=== PATIENT | female | born 1990 | race Caucasian/White ===

== ENCOUNTER 2019-08-07 20:12 | Emergency (ER) | payer OTHER ==
[2019-08-07] MEDS ORDERED: XYLOCAINE 1% HCL 20 ML MDV IJ ONE (20:13)
--- NOTE | 2019-08-07 21:20 | ERPHSYRPT ---
- History of Present Illness Time Seen by Provider: 08/07/19 21:18 Source: patient Exam Limitations: no limitations Patient Subjective Stated Complaint: Patient states " My back has been hurting for last 3 weeks but today it just became unbearable". Patient states " Its getting hard to walk and move". Triage Nursing Assessment: Patient arrived to ER via self. Patient ambulated to room without difficulty. Patient A/O times 4. Patient answers questions appropriatley. Upon assessment of lower back no bruising or redness noted. No abnormalities noted. Patient states she does have rough time with kidneys. Patient denies pain or burning upon urination. Urine collected and urine yellow in color. Patient lungs clear bilateral A/P throughout. + BS times 4 quads. ABD large, non-distended. Patient denies ABD pain upon palpitation. No dependent edema noted. + pedal pulses in bilateral lower extremities. Physician History: Patient states " My back has been hurting for last 3 weeks but today it just became unbearable". Patient states " Its getting hard to walk and move". Patient denies ABD pain Timing/Duration: day(s) (3) Severity: moderate Associated Symptoms: other (low back pain), No abdominal pain, No heartburn, No diaphoresis, No chills, No chest pain, No fever, No headaches, No loss of appetite Allergies/Adverse Reactions: Penicillins Adverse Reaction (Verified 08/07/19 20:47) Hx Tetanus, Diphtheria Vaccination/Date Given: Yes Hx Influenza Vaccination/Date Given: Yes Hx Pneumococcal Vaccination/Date Given: No Immunizations Up to Date: Yes Travel Risk - International Travel Have you traveled outside of the country in past 3 weeks: No Have you or anyone close to you been diagnosed with or: No Do your reside in a community with a known COVID-19 case?: Yes If Yes where:: [facility] - Coronavirus Screening Has patient experienced Coronavirus symptoms: No - Review of Systems Constitutional: No Fever, No Chills Eyes: No Symptoms Ears, Nose, & Throat: No Symptoms Respiratory: No Cough, No Dyspnea Cardiac: No Chest Pain, No Edema, No Syncope Abdominal/Gastrointestinal: No Abdominal Pain, No Nausea, No Vomiting, No Diarrhea Genitourinary Symptoms: No Dysuria, No Frequency, No Hesitancy, No Flank Pain Musculoskeletal: Back Pain, No Neck Pain Skin: No Rash Neurological: No Dizziness, No Focal Weakness, No Sensory Changes Psychological: No Symptoms Endocrine: No Symptoms All Other Systems: Reviewed and Negative - Past Medical History Pertinent Past Medical History: Yes Neurological History: No Pertinent History ENT History: No Pertinent History Cardiac History: No Pertinent History Respiratory History: No Pertinent History Endocrine Medical History: No Pertinent History Musculoskeletal History: No Pertinent History GI Medical History: No Pertinent History History: No Pertinent History Psycho-Social History: Anxiety, Depression Female Reproductive Disorders: Other Other Medical History: PCOS - Past Surgical History Past Surgical History: Yes Neuro Surgical History: No Pertinent History Cardiac: No Pertinent History Respiratory: No Pertinent History Gastrointestinal: Cholecystectomy Genitourinary: No Pertinent History Musculoskeletal: No Pertinent History Female Surgical History: No Pertinent History - Social History Smoking Status: Never smoker Exposure to second hand smoke: No Drug Use: none Patient Lives Alone: No - Female History Hx Last Menstrual Period: 08/07/19 Hx Now: No - Nursing Vital Signs Nursing Vital Signs: Initial Vital Signs Temperature 97.6 F 08/07/19 20:42 Pulse Rate 82 08/07/19 20:42 Respiratory Rate 18 08/07/19 20:42 Blood Pressure 122/75 08/07/19 20:42 O2 Sat by Pulse Oximetry 97 08/07/19 20:42 Pain Scale Pain Intensity [Back] 10 Pain Intensity 10 - Physical Exam General Appearance: no apparent distress, alert Eye Exam: PERRL/EOMI, eyes nml inspection Ears, Nose, Throat Exam: normal ENT inspection, TMs normal, pharynx normal, moist mucous membranes Neck Exam: normal inspection, non-tender, supple, full range of motion Respiratory Exam: normal breath sounds, lungs clear, No respiratory distress Cardiovascular Exam: regular rate/rhythm, normal heart sounds, normal peripheral pulses Gastrointestinal/Abdomen Exam: soft, normal bowel sounds, No tenderness, No mass Back Exam: normal inspection, normal range of motion, No CVA tenderness, No vertebral tenderness Extremity Exam: normal inspection, normal range of motion, pelvis stable Neurologic Exam: alert, oriented x 3, cooperative, normal mood/affect, nml cerebellar function, nml station & gait, sensation nml, No motor deficits Skin Exam: normal color, warm, dry, No rash Lymphatic Exam: No adenopathy SpO2: 96 - Course Nursing assessment & vital signs reviewed: Yes Ordered Tests: Active Orders 24 hr Category Date Time Status UA W/RFX UR CULTURE Stat Lab 08/07/19 21:23 Completed Medication Summary Generic Name Dose Route Start Last Admin Trade Name Konrad PRN Reason Stop Dose Admin Ceftriaxone Sodium 1,000 mg 08/07/19 21:35 Rocephin 1000 Mg Inj IM 08/07/19 21:36 STAT ONE Orphenadrine Citrate 60 mg 08/07/19 21:35 Norflex 60 Mg/2 Ml IM 08/07/19 21:36 STAT ONE Lab/Rad Data: Laboratory Results 08/07/19 Range/Units 21:23 Urine Color YELLOW (YELLOW) Urine Appearance SLIGHTLY CLOUDY (CLEAR) Urine pH 5.0 (5-6) Ur Specific Stevens 1.035 (1.005-1.025) Urine Protein 30 (Negative) Urine Ketones NEGATIVE (NEGATIVE) Urine Blood SMALL (0-5) Ramsey/ul Urine Nitrite NEGATIVE (NEGATIVE) Urine Bilirubin NEGATIVE (NEGATIVE) Urine Urobilinogen 2 (0-1) mg/dL Ur Leukocyte Esterase NEGATIVE (NEGATIVE) Urine WBC (Auto) 0-2 (0-5) /HPF Urine RBC (Auto) NONE (0-2) /HPF U Epithel Cells (Auto) FEW (FEW) /HPF Urine Bacteria (Auto) RARE (NEGATIVE) /HPF Urine Mucus (Auto) MODERATE (NEGATIVE) /HPF Urine Culture Reflexed NO (NO) Urine Glucose NEGATIVE (NEGATIVE) mg/dL - Progress Progress: improved Counseled pt/family regarding: lab results, diagnosis, need for follow-up - Departure Departure Disposition: Home Clinical Impression: Pelvic inflammation in female Back pain Qualifiers: Back pain location: low back pain Chronicity: acute Back pain laterality: bilateral Sciatica presence: without sciatica Qualified Code(s): M54.5 - Low back pain Condition: Stable Critical Care Time: No Referrals: Provider,Unknown [Primary Care Provider] - Instructions: Low Back Pain (DC), Pelvic Inflammatory Disease (DC) Additional Instructions: CESARKIRBY was seen on 08/07/19 n the Emergency Room. At that time you were treated for an emergent condition, during your visit Laboratory, Radiology and/ or other procedures may have been ordered. It is very important that you follow- up with your Primary Care Physician Unknown Provider within the next 24-48 hours to review your Emergency Room visit and the final results of testing that was ordered. Some test results such as Urine Cultures, Blood Cultures, and other cultures if ordered will not be finalized for 24-48 hours. If you do not have a Primary Care Provider please call the medical records department at [phone] ext [phone] to obtain a copy of your results or you may sign into our patient portal to obtain these results by visiting us @ [email or web address] and completing the following steps: 1. Click on the Patient Portal link 2. Click the Patient Self Enrollment Link to complete the enrollment form and entering your 3. Once the enrollment form is completed you will receive an email with a temporary ID and password at the email address you provided. 4. Next choose a user name and password. Your user name must be at least 4 characters long and your password must be at least 4 characters long. 5. Choose a security question from the list and provide your answer to the question. If you already have signed into the Health Portal you may access your Health Care Information 18/11 by the following steps: 1. Login to our website @ [email or web address] 2. Enter your original user name and password. FAQS The [facility] Health Portal is an online tool that contains your Lab Results, Radiology Reports, Visit History, Discharge Instructions and Health Summary Lab and Radiology Results will not be available for 72 hours on the portal. The Portal is a secure site, passwords are encryted and URLs are re-written so they cannot be copied and pasted. You and authorized family members are the only ones who can access your Portal. Also there is a timeout feature that protects your information if you leave the Portal page open. If you have technical difficulty please use the Contact Us link on the page this will allow you to submit any questions you have regarding the Portal or you may contact the Medical Record Department at [phone]. Forms: Work/School Release Form Prescriptions: Smz/Tmp Ds Tablet [Bactrim Ds Tablet] 1 udtab PO BID #20 tablet Cyclobenzaprine HCl 10 mg [Flexeril 10 MG] 10 mg PO TID #30 tablet
[2019-08-07 21:28] LABS: Appearance SLIGHTLY CLOUDY (CLEAR); Bacteria RARE /HPF (NEGATIVE); Bilirubin NEGATIVE (NEGATIVE); Blood SMALL Ery/ul (0-5); Epithelial Cells FEW /HPF (FEW); Glucose NEGATIVE (NEGATIVE); Ketones NEGATIVE (NEGATIVE); Leukocyte Esterase NEGATIVE (NEGATIVE); Mucus MODERATE /HPF (NEGATIVE); Nitrite NEGATIVE (NEGATIVE); Protein,Urine Dip 30 (Negative); Specific Gravity 1.035 (1.005-1.025); Urobilinogen 2 mg/dL (0-1); WBC 0-2 /HPF (0-5)
[2019-08-07] MEDS ORDERED: Rocephin 1000 MG INJ IM ONE (21:35)
[2019-08-07] MEDS ORDERED: Norflex 60 MG/2 ML IM ONE (21:35)
[2019-08-07] MEDS ORDERED: Norflex 60 MG/2 ML ONE (21:49)
[2019-08-07] MEDS ORDERED: Rocephin 1000 MG INJ ONE (21:49)
[2019-08-07 22:51] VITALS: BP 117/71; PULSE 74; O2SAT 99
== END 2019-08-07 22:51 | disposition home or self-care (01) ==
LOC: ED 20:12
DX: N73.9 Female pelvic inflammatory disease, unspecified (principal); M54.5 Low back pain; F41.8 Other specified anxiety disorders
CPT/HCPCS: 81001; 96372; 99284; J0696; J2360

== ENCOUNTER 2019-08-09 17:36 | Emergency (ER) | payer OTHER ==
[2019-08-09] MEDS ORDERED: TYLENOL 325 MG PO ONE (18:12)
[2019-08-09 18:16] VITALS: BP 117/74
[2019-08-09] MEDS ORDERED: TYLENOL 325 MG ONE (18:17)
--- NOTE | 2019-08-09 18:19 | ERPHSYRPT ---
- History of Present Illness Time Seen by Provider: 08/09/19 18:00 Source: patient Exam Limitations: no limitations Physician History: Patient is a 28-year-old female presents to our ED with complaints of back pain that radiates up towards her mid back. Pain described as an ache. Pain worse with movement. Pain improved with rest. No trauma. No fever. No radiation into the lower extremities. No associated nausea or vomiting. No diarrhea. Patient currently breast-feeds. Patient declined pain medication as this may affect her ability to breast-feed. Patient agreed to Tylenol. Patient was in our ED on Friday, 2 days ago for the same. No imaging studies were done at that time. Patient was diagnosed with a urinary tract infection. She was started on Bactrim. Patient has been taking Bactrim as recommended. Patient states that her symptoms have not improved. Patient states she is otherwise healthy. She voices no other complaints at this time. Timing/Duration: day(s) (2 days) Quality: aching Back Pain Location: lumbar spine Severity of Pain-Max: moderate Severity of Pain-Current: moderate Modifying Factors: Improves With: movement Associated Symptoms: No fever, No sweating, No urinary incontinence, No loss of bowel control, No constipation, No nausea, No vomiting, No dizziness, No weakness, No tingling in legs/feet Previous symptoms: no prior history Allergies/Adverse Reactions: Penicillins Adverse Reaction (Verified 08/07/19 20:47) Hx Tetanus, Diphtheria Vaccination/Date Given: Yes Hx Influenza Vaccination/Date Given: Yes Hx Pneumococcal Vaccination/Date Given: No - Review of Systems Constitutional: No Fever, No Chills Eyes: No Symptoms Ears, Nose, & Throat: No Symptoms Respiratory: No Symptoms, No Cough, No Dyspnea Cardiac: No Symptoms, No Chest Pain, No Edema, No Syncope Abdominal/Gastrointestinal: No Symptoms, No Abdominal Pain, No Nausea, No Vomiting, No Diarrhea Genitourinary Symptoms: No Symptoms, No Dysuria Musculoskeletal: No Symptoms, No Back Pain, No Neck Pain Skin: No Symptoms, No Rash Neurological: No Symptoms, No Dizziness, No Focal Weakness, No Sensory Changes Psychological: No Symptoms Endocrine: No Symptoms Hematologic/Lymphatic: No Symptoms Immunological/Allergic: No Symptoms All Other Systems: Reviewed and Negative - Past Medical History Pertinent Past Medical History: Yes Neurological History: No Pertinent History ENT History: No Pertinent History Cardiac History: No Pertinent History Respiratory History: No Pertinent History Endocrine Medical History: No Pertinent History Musculoskeletal History: No Pertinent History GI Medical History: No Pertinent History History: No Pertinent History Psycho-Social History: Anxiety, Depression Female Reproductive Disorders: Other Other Medical History: PCOS - Past Surgical History Past Surgical History: Yes Neuro Surgical History: No Pertinent History Cardiac: No Pertinent History Respiratory: No Pertinent History Gastrointestinal: Cholecystectomy Genitourinary: No Pertinent History Musculoskeletal: No Pertinent History Female Surgical History: No Pertinent History - Social History Smoking Status: Never smoker Exposure to second hand smoke: No Drug Use: none Patient Lives Alone: No - Female History Hx Now: No - Nursing Vital Signs Nursing Vital Signs: Initial Vital Signs Pulse Rate 76 08/09/19 18:00 Respiratory Rate 18 08/09/19 18:00 Blood Pressure 117/74 08/09/19 18:00 O2 Sat by Pulse Oximetry 99 08/09/19 18:00 Pain Scale Pain Intensity [Lower 6 Posterior Back] Pain Intensity 6 - Physical Exam General Appearance: no apparent distress, alert Eye Exam: PERRL/EOMI, eyes nml inspection Neck Exam: normal inspection, non-tender, supple, full range of motion, No meningismus, No midline tenderness Respiratory Exam: normal breath sounds, lungs clear, No respiratory distress Cardiovascular Exam: regular rate/rhythm, normal heart sounds Gastrointestinal Exam: soft, No tenderness, No mass Pelvic Exam: not done Back Exam: normal inspection, normal range of motion, vertebral tenderness, No CVA tenderness, No rash Extremity Exam: normal inspection, normal range of motion, No calf tenderness, No pedal edema Peripheral Pulses: dorsalis-pedis (R): 2+, dorsalis-pedis (L): 2+ Neurologic Exam: alert, oriented x 3, cooperative, radarman II-XII nml as tested, normal mood/affect, nml station & gait, sensation nml, No motor deficits Skin Exam: normal color, warm, dry, No rash SpO2 Interpretation: normal SpO2: 99 O2 Delivery: Room Air - Course Nursing assessment & vital signs reviewed: Yes - CT Exams Abdomen/Pelvis CT Interpretation: Tele-radiologist Report (CT abdomen pelvis with 3D reconstruction of the lumbar spine shows degenerative joint disease of the lumbar spine. No intra-abdominal pathology.) Ordered Tests: Active Orders 24 hr Category Date Time Status ABDOMEN AND PELVIS W/0 CONTRAS [CT] Stat Exams 08/09/19 19:22 Taken RECONSTRUCTION [CT] Stat Exams 08/09/19 18:11 Taken HCG,QUALITATIVE URINE Stat Lab 08/09/19 18:25 Completed Medication Summary Discontinued Medications Generic Name Dose Route Start Last Admin Trade Name Konrad PRN Reason Stop Dose Admin Acetaminophen 975 mg 08/09/19 18:12 08/09/19 18:27 Tylenol 325 Mg PO 08/09/19 18:13 975 mg STAT ONE Administration Acetaminophen Confirm 08/09/19 18:17 Tylenol 325 Mg Administered 08/09/19 18:18 Dose 975 mg .ROUTE .STK-MED ONE Lab/Rad Data: Laboratory Results 08/09/19 Range/Units 18:25 Urine HCG, Qual NEGATIVE (Negative) - Progress Progress: improved Progress Note: Patient reassessed. Pain improved. After long discussion with patient, patient understands what the plan of care is. Patient advised that she should avoid bending rotation activities which could exacerbate her low back pain. 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 Patient advised to rest at least for the next several days. [id number] analgesics as needed for pain control. We discussed weight loss and exercising and strengthening of the core musculature. Patient states she is ready for discharge. Patient will continue the antibiotics given to her at the last ED visit. Patient also has muscle relaxers from that last visit as well. 08/09/19 20:49 Counseled pt/family regarding: lab results, diagnosis, need for follow-up, rad results - Departure Departure Disposition: Home Clinical Impression: Degenerative joint disease, Low back pain, Back pain Condition: Stable Critical Care Time: No Referrals: Provider,Unknown [Primary Care Provider] - Additional Instructions: Discharge/Care Plan KIRBY GUERRERO was seen on 08/09/19 in the Emergency Room. The patient was counseled regarding Diagnosis,Lab results, Imaging studies, need for follow up and when to return to the Emergency Room. Prescriptions given: Discharge Note I have spoken with the patient and/or caregivers. I have explained the patient' s condition, diagnosis and treatment plan based on the information available to me at this time. I have answered the patient's and/or caregiver's questions and addressed any concerns. The patient and/or caregivers have as good understanding of the patient's diagnosis, condition and treatment plan as can be expected at this point. The vital signs have been stable. The patient's condition is stable and appropriate for discharge from the emergency department. The patient will pursue further outpatient evaluation with the primary care physician or other designated or consulting physician as outlined in the discharge instructions. The patient and/or caregivers are agreeable to this plan of care and follow-up instructions have been explained in detail. The patient and/or caregivers have received these instruction. The patient/and or caregivers are aware that any significant change in condition or worsening of symptoms should prompt an immediate return to this or the closest emergency department or call 911.
[2019-08-09 21:08] VITALS: PULSE 89; O2SAT 97
--- NOTE | 2019-08-10 08:45 | XRAY ---
Indication: Renal stone. Multiple contiguous axial images obtained through the abdomen and pelvis without contrast as ordered. Comparison: None Lung bases grossly clear. Heart is not enlarged. Noncontrasted stomach and bowel loops appear nonobstructed. Normal appendix. Mild scattered fecal debris greatest in the right hemicolon. Gallbladder contracted or surgically absent. No free fluid/air. Remaining liver, pancreas, spleen, adrenal glands, kidneys, ureters, bladder, uterus, and aorta appear unremarkable for noncontrast exam. Osseous structures intact with minimal lower lumbar degenerative changes. No ventral or inguinal hernias. Impression: No acute intra-abdominal/pelvic abnormalities on this noncontrast exam.
--- NOTE | 2019-08-10 09:10 | XRAY ---
Indication: Low back pain. Axial, coronal, and sagittal reformatted images of the lumbar spine obtained using the raw data from CT abdomen/pelvis study of the same day. Comparison: None T12-L3 disc levels are negative for disc herniation or spinal canal stenosis. Facets are symmetric. The L3-L5 disc levels demonstrates minimal broad-based disc bulge without spinal canal or foraminal stenosis. At the L5-S1 level, there is mild broad-based disc osteophyte complex producing foraminal narrowing, left greater than right. Sagittal and coronal reformatted images demonstrates normal lumbar alignment/lordosis. Disc spaces maintained. No acute compression fracture or subluxation. Impression: L3-S1 degenerative disc disease as detailed. Negative large disc herniation or spinal canal stenosis.
== END 2019-08-09 21:09 | disposition home or self-care (01) ==
LOC: ED 17:36
DX: M51.36 Other intervertebral disc degeneration, lumbar region (principal); M54.5 Low back pain
CPT/HCPCS: 74176; 76376; 84703; 99284; A9270-GY

== ENCOUNTER 2020-08-09 10:21 | Emergency (ER) | payer OTHER ==
[2020-08-09 10:39] VITALS: O2SAT 98
[2020-08-09] MEDS ORDERED: TORAdol 30 mg Injection IV ONE (10:52)
[2020-08-09] MEDS ORDERED: Norflex 60 MG/2 ML IV ONE (10:53)
[2020-08-09 11:12] LABS: Absolute Neutrophil Ct (ANC) 3.61 (1.4-6.9); BASOPHIL % 0.3 % (0.0-0.4); Basophil (Absolute #) 0.02 (0-0.4); Eosinophil % 6.6 % (0.00-5.0); Eosinophil (Absolute #) 0.42 (0-0.5); Hematocrit 41.2 % (35-47); Hemoglobin 13.5 gm/dl (12.0-16.0); Lymphocyte (Absolute #) 1.88 (1.0-4.6); Lymphocytes % 29.5 % (24.0-44.0); Mean Cell Volume 90.5 fl (78-100); Mean Corpuscular Hemoglobin 29.7 pg (26-32); Mean Corpuscular Hgb Concent. 32.8 g/dl (32-36); Mean Platelet Volume 8.5 fl (7.5-11.0); Monocyte (Absolute #) 0.45 (0.0-1.3); Monocytes % 7.1 % (0.0-12.0); Neutrophil % 56.5 % (36.0-66.0); Platelet Count 315 K/mm3 (150-450); Red Blood Count 4.55 M/mm3 (4.1-5.4); Red Cell Distribution Width 14.6 % (11.5-14.0); White Blood Count 6.4 K/mm3 (4.0-10.5)
[2020-08-09] MEDS ORDERED: Norflex 60 MG/2 ML ONE (11:19)
[2020-08-09] MEDS ORDERED: TORAdol 30 mg Injection ONE (11:19)
[2020-08-09 11:22] LABS: Appearance SLIGHTLY CLOUDY (CLEAR); Bilirubin NEGATIVE (NEGATIVE); Blood MODERATE Ery/ul (0-5); Epithelial Cells RARE /HPF (FEW); Glucose NEGATIVE (NEGATIVE); Ketones NEGATIVE (NEGATIVE); Leukocyte Esterase NEGATIVE (NEGATIVE); Mucus MODERATE /HPF (NEGATIVE); Nitrite NEGATIVE (NEGATIVE); Protein,Urine Dip NEGATIVE (Negative); Specific Gravity 1.029 (1.005-1.025); Urobilinogen NEGATIVE mg/dL (0-1)
--- NOTE | 2020-08-09 11:32 | ERPHSYRPT ---
- History of Present Illness Time Seen by Provider: 08/09/20 10:46 Historian: patient Exam Limitations: no limitations Patient Subjective Stated Complaint: pt here for lower back pain this am, no injury but pt states she mowed and put up a trampoline yesterday, no burning with urniation Triage Nursing Assessment: pt alert, resp easy, skin w/d/p, abd soft Physician History: 29 years old female with history of back pain in the past occasionally presented in the ER with bilateral flank pain and some lower back pain starting yesterday afternoon with progressive worsening until this morning when she was having difficulty getting out of bed with sharp shooting moderate to severe intensity pain. Minimal movements in the abdomen make it worse. No radiation in lower extremities. No numbness tingling weakness of lower extremities and without any loss of bowel or bladder control. No perineal numbness. Reports having similar symptoms in the past as well. Does have history of kidney infections and stones and also back pains. Patient also reports she did move her yard and put her on trampoline before this pain started. No fever chills or urinary symptoms. Timing/Duration: yesterday, gradual onset, worse Activities at Onset: rest Quality: sharpness Abdominal Pain Onset Location: flank, other (Low back) Pain Radiation: back Severity of Pain-Max: moderate Severity of Pain-Current: moderate Modifying Factors: Improves With: lying down, rest, position. Worsens With: movement, palpation, walking Associated Symptoms: denies symptoms Previous symptoms: same symptoms as today Allergies/Adverse Reactions: Penicillins Adverse Reaction (Verified 08/09/20 10:39) Home Medications: Paroxetine HCl 20 mg [Paxil 20 MG] 1 ea DAILY 08/09/20 [History] Phentermine HCl 1 ea DAILY 08/09/20 [History] Hx Tetanus, Diphtheria Vaccination/Date Given: Yes Hx Influenza Vaccination/Date Given: Yes Hx Pneumococcal Vaccination/Date Given: No Immunizations Up to Date: Yes Travel Risk - International Travel Have you traveled outside of the country in past 3 weeks: No - Coronavirus Screening Are you exhibiting any of the following symptoms?: No Close contact with a COVID-19 positive Pt in past 14-21 Days: No - Vaccine Status Have you recieved a Covid-19 vaccination: No - Review of Systems Constitutional: No Symptoms Eyes: No Symptoms Ears, Nose, & Throat: No Symptoms Respiratory: No Symptoms Cardiac: No Symptoms Abdominal/Gastrointestinal: Abdominal Pain Genitourinary Symptoms: Flank Pain Musculoskeletal: Back Pain Skin: No Symptoms Neurological: No Symptoms Psychological: No Symptoms - Past Medical History Pertinent Past Medical History: Yes Neurological History: No Pertinent History ENT History: No Pertinent History Cardiac History: No Pertinent History Respiratory History: No Pertinent History Endocrine Medical History: No Pertinent History Musculoskeletal History: No Pertinent History GI Medical History: No Pertinent History History: No Pertinent History Psycho-Social History: Anxiety, Depression Female Reproductive Disorders: Other Other Medical History: PCOS,pstd , psot 05/09/20 - Past Surgical History Past Surgical History: Yes Neuro Surgical History: No Pertinent History Cardiac: No Pertinent History Respiratory: No Pertinent History Gastrointestinal: Cholecystectomy Genitourinary: No Pertinent History Musculoskeletal: No Pertinent History Female Surgical History: No Pertinent History Other Surgical History: Left Foot Surgery - Social History Smoking Status: Never smoker Exposure to second hand smoke: No Drug Use: none Patient Lives Alone: No - Female History Hx Last Menstrual Period: july 27 Hx Now: (unkn) - Nursing Vital Signs Nursing Vital Signs: Initial Vital Signs Temperature 97.2 F 08/09/20 10:33 Pulse Rate 81 08/09/20 10:33 Respiratory Rate 18 08/09/20 10:33 Blood Pressure 117/77 08/09/20 10:33 O2 Sat by Pulse Oximetry 98 08/09/20 10:33 Pain Scale Pain Intensity [Back] 6 Pain Intensity 6 - Physical Exam General Appearance: no apparent distress, alert Eye Exam: PERRL/EOMI, eyes nml inspection Ears, Nose, Throat Exam: normal ENT inspection, pharynx normal Neck Exam: normal inspection, supple, full range of motion Respiratory Exam: normal breath sounds, lungs clear Cardiovascular Exam: regular rate/rhythm, normal heart sounds Gastrointestinal/Abdomen Exam: soft, normal bowel sounds, tenderness (Bilateral plaque more on the left), No guarding Back Exam: normal inspection, normal range of motion, CVA tenderness, decreased range of motion, muscle spasm (Lumbar paraspinal and sacroiliac area bilaterally.), No vertebral tenderness Extremity Exam: normal inspection, normal range of motion Neurologic Exam: alert, oriented x 3, cooperative Skin Exam: normal color SpO2 Interpretation: normal SpO2: 98 O2 Delivery: Room Air Ordered Tests: Active Orders 24 hr Category Date Time Status IV Insertion STAT Care 08/09/20 10:52 Active NPO (ED) STAT Care 08/09/20 10:52 Active ABDOMEN AND PELVIS W/0 CONTRAS [CT] Stat Exams 08/09/20 10:52 Completed CBC W DIFF Stat Lab 08/09/20 11:10 Completed CMP Stat Lab 08/09/20 11:10 Completed HCG,QUALITATIVE URINE Stat Lab 08/09/20 10:56 Completed LIPASE Stat Lab 08/09/20 11:10 Completed UA W/RFX UR CULTURE Stat Lab 08/09/20 10:56 Completed Medication Summary Discontinued Medications Generic Name Dose Route Start Last Admin Trade Name Freq PRN Reason Stop Dose Admin Ketorolac Tromethamine 30 mg 08/09/20 10:52 08/09/20 11:21 Toradol 30 Mg Injection IV 08/09/20 10:53 30 mg STAT ONE Administration Ketorolac Tromethamine Confirm 08/09/20 11:19 Toradol 30 Mg Injection Administered 08/09/20 11:20 Dose 30 mg .ROUTE .STK-MED ONE Orphenadrine Citrate 60 mg 08/09/20 10:53 08/09/20 11:21 Norflex 60 Mg/2 Ml IV 08/09/20 10:54 60 mg STAT ONE Administration Orphenadrine Citrate Confirm 08/09/20 11:19 Norflex 60 Mg/2 Ml Administered 08/09/20 11:20 Dose 60 mg .ROUTE .STK-MED ONE Lab/Rad Data: Laboratory Result Diagrams 08/09/20 11:10 08/09/20 11:10 Laboratory Results 08/09/20 08/09/20 08/09/20 Range/Units 11:10 11:10 11:10 WBC 6.4 (4.0-10.5) K/mm3 RBC 4.55 (4.1-5.4) M/mm3 Hgb 13.5 (12.0-16.0) gm/dl Hct 41.2 (35-47) % MCV 90.5 (78-100) fl MCH 29.7 (26-32) pg MCHC 32.8 (32-36) g/dl RDW 14.6 H (11.5-14.0) % Plt Count 315 (150-450) K/mm3 MPV 8.5 (7.5-11.0) fl Gran % 56.5 (36.0-66.0) % Eos # (Auto) 0.42 (0-0.5) Absolute Lymphs (auto) 1.88 (1.0-4.6) Absolute Monos (auto) 0.45 (0.0-1.3) Lymphocytes % 29.5 (24.0-44.0) % Monocytes % 7.1 (0.0-12.0) % Eosinophils % 6.6 H (0.00-5.0) % Basophils % 0.3 (0.0-0.4) % Absolute Granulocytes 3.61 (1.4-6.9) Basophils # 0.02 (0-0.4) Sodium 140 (137-145) mmol/L Potassium 4.4 (3.5-5.1) mmol/L Chloride 106 (98-107) mmol/L Carbon Dioxide 26 (22-30) mmol/L Anion Gap 11.5 (5-15) MEQ/L BUN 12 (7-17) mg/dL Creatinine 0.78 (0.52-1.04) mg/dL Estimated GFR > 60.0 ML/MIN Glucose 98 (74-106) mg/dL Calcium 9.2 (8.4-10.2) mg/dL Total Bilirubin 0.50 (0.2-1.3) mg/dL AST 31 (14-36) U/L ALT 42 H (0-35) U/L Alkaline Phosphatase 80 (38-126) U/L Serum Total Protein 7.5 (6.3-8.2) g/dL Albumin 4.1 (3.5-5.0) g/dL Lipase 131 (23-300) U/L Urine Color (YELLOW) Urine Appearance (CLEAR) Urine pH (5-6) Ur Specific [place] (1.005-1.025) Urine Protein (Negative) Urine Ketones (NEGATIVE) Urine Blood (0-5) Ramsey/ul Urine Nitrite (NEGATIVE) Urine Bilirubin (NEGATIVE) Urine Urobilinogen (0-1) mg/dL Ur Leukocyte Esterase (NEGATIVE) Urine WBC (Auto) (0-5) /HPF Urine RBC (Auto) (0-2) /HPF U Epithel Cells (Auto) (FEW) /HPF Urine Bacteria (Auto) (NEGATIVE) /HPF Urine Mucus (Auto) (NEGATIVE) /HPF Urine Culture Reflexed (NO) Urine Glucose (NEGATIVE) mg/dL Urine HCG, Qual (Negative) 08/09/20 08/09/20 Range/Units 10:56 10:56 WBC (4.0-10.5) K/mm3 RBC (4.1-5.4) M/mm3 Hgb (12.0-16.0) gm/dl Hct (35-47) % MCV (78-100) fl MCH (26-32) pg MCHC (32-36) g/dl RDW (11.5-14.0) % Plt Count (150-450) K/mm3 MPV (7.5-11.0) fl Gran % (36.0-66.0) % Eos # (Auto) (0-0.5) Absolute Lymphs (auto) (1.0-4.6) Absolute Monos (auto) (0.0-1.3) Lymphocytes % (24.0-44.0) % Monocytes % (0.0-12.0) % Eosinophils % (0.00-5.0) % Basophils % (0.0-0.4) % Absolute Granulocytes (1.4-6.9) Basophils # (0-0.4) Sodium (137-145) mmol/L Potassium (3.5-5.1) mmol/L Chloride (98-107) mmol/L Carbon Dioxide (22-30) mmol/L Anion Gap (5-15) MEQ/L BUN (7-17) mg/dL Creatinine (0.52-1.04) mg/dL Estimated GFR ML/MIN Glucose (74-106) mg/dL Calcium (8.4-10.2) mg/dL Total Bilirubin (0.2-1.3) mg/dL AST (14-36) U/L ALT (0-35) U/L Alkaline Phosphatase (38-126) U/L Serum Total Protein (6.3-8.2) g/dL Albumin (3.5-5.0) g/dL Lipase (23-300) U/L Urine Color YELLOW (YELLOW) Urine Appearance SLIGHTLY CLOUDY (CLEAR) Urine pH 5.0 (5-6) Ur Specific [place] 1.029 (1.005-1.025) Urine Protein NEGATIVE (Negative) Urine Ketones NEGATIVE (NEGATIVE) Urine Blood MODERATE (0-5) Ramsey/ul Urine Nitrite NEGATIVE (NEGATIVE) Urine Bilirubin NEGATIVE (NEGATIVE) Urine Urobilinogen NEGATIVE (0-1) mg/dL Ur Leukocyte Esterase NEGATIVE (NEGATIVE) Urine WBC (Auto) 6-10 (0-5) /HPF Urine RBC (Auto) 6-10 (0-2) /HPF U Epithel Cells (Auto) RARE (FEW) /HPF Urine Bacteria (Auto) NONE (NEGATIVE) /HPF Urine Mucus (Auto) MODERATE (NEGATIVE) /HPF Urine Culture Reflexed NO (NO) Urine Glucose NEGATIVE (NEGATIVE) mg/dL Urine HCG, Qual NEGATIVE (Negative) - Progress Progress: improved, pain not gone completely, re-examined Progress Note: 08/09/20 12:13 She is given Toradol and Norflex for symptomatic relief, on reevaluation feeling better but still have some discomfort all over her back. I believe patient has back strain, will continue with NSAIDs and muscle relaxants to go home. She h as grossly unremarkable chemistry and blood work. No definitive UTI. CT abdomen pelvis without contrast is negative for any kidney stone, pyelonephritis but it did show a 5.2 cm right ovarian cyst. Patient does not very tender in that area. I do not think this is the cause of her pain but more of a musculoskeletal. Recommended outpatient follow-up with her CLINICAL STAFF ANESTHESIOLOGIST for reevaluation. Discussed signs symptoms of worsening needing return to ER which she seems understanding. Stable for discharge. Counseled pt/family regarding: lab results, diagnosis, need for follow-up, rad results - Departure Departure Disposition: Home Clinical Impression: Back strain Qualifiers: Encounter type: initial encounter Qualified Code(s): S39.012A - Strain of muscle, fascia and tendon of lower back, initial encounter Ovarian cyst Qualifiers: Laterality: right Qualified Code(s): N83.201 - Unspecified ovarian cyst, right side Condition: Stable Critical Care Time: No Referrals: ATUL HUDSON MD [Primary Care Provider] - (1-2 days for reevaluation) SHANA VALERIO MD [NON-STAFF PHY W/O PRIVILEGES] - (1-2 days for reevaluation of ovarian cyst) Instructions: Low Back Pain (DC) Additional Instructions: Take Tylenol/ibuprofen as needed for pain. Drink plenty of fluids. Follow-up with your primary care and CLINICAL STAFF ANESTHESIOLOGIST for reevaluation of ovarian cyst. Return to ER for intractable pain, vomiting, numbness tingling weakness of lower extremities/loss of bowel or bladder control/fever chills etc. Prescriptions: Ibuprofen 600 mg PO Q6HPRN PRN 10 Days #20 tablet PRN Reason: Pain Cyclobenzaprine HCl 10 mg [Flexeril 10 MG] 10 mg PO TID #12 tablet
[2020-08-09 11:42] LABS: ALBUMIN 4.1 g/dL (3.5-5.0); ALKALINE PHOSPHATASE 80 U/L (38-126); ANION GAP 11.5 MEQ/L (5-15); BLOOD UREA NITROGEN 12 mg/dL (7-17); CHLORIDE 106 mmol/L (98-107); Calcium 9.2 mg/dL (8.4-10.2); Carbon Dioxide 26 mmol/L (22-30); Creatinine 1 0.78 mg/dL (0.52-1.04); EST GLOMERULAR FILTRATION RATE > 60.0 ML/MIN; Glucose 98 mg/dL (74-106); Potassium 4.4 mmol/L (3.5-5.1); SGOT/AST 31 U/L (14-36); SGPT/ALT 42 U/L (0-35); SODIUM 140 mmol/L (137-145); Total Protein 7.5 g/dL (6.3-8.2)
--- NOTE | 2020-08-09 12:04 | XRAY ---
Indication: Bilateral flank pain. Multiple contiguous axial images obtained through the abdomen and pelvis without contrast using renal stone protocol. Comparison: August 09, 2019. Lung bases remain clear. Heart is not enlarged. No renal calculus or evidence for obstructive uropathy in either system. Noncontrasted stomach and bowel loops nonobstructed with now mild diffuse scattered colonic fecal debris throughout. Normal appendix. New 5.2 cm right ovary cyst. Uterus demonstrates new IUD. No free fluid/air. Previous cholecystectomy. Remaining liver, pancreas, spleen, adrenal glands, kidneys, ureters, bladder, uterus, and aorta are unremarkable for noncontrast exam. Osseous structures intact. Impression: 1. Continued negative renal calculus or evidence for obstructive uropathy. 2. New 5.2 cm right ovary cyst and new IUD. 3. New mild diffuse fecal stasis.
[2020-08-09 12:29] VITALS: BP 115/71; PULSE 66
== END 2020-08-09 12:47 | disposition home or self-care (01) ==
LOC: ED 10:21
DX: S39.012A Strain of muscle, fascia and tendon of lower back, initial encounter (principal); N83.201 Unspecified ovarian cyst, right side; X50.0XXA Overexertion from strenuous movement or load, initial encounter; Y93.89 Activity, other specified; Y92.89 Other specified places as the place of occurrence of the external cause
CPT/HCPCS: 36000; 36415; 74176; 80053; 81001; 83690; 84703; 85025; 96374; 96375; 99284; J1885; J2360

== ENCOUNTER 2021-05-18 13:18 | Emergency (ER) | payer OTHER ==
[2021-05-18 13:40] VITALS: BP 130/87; PULSE 72; O2SAT 96
--- NOTE | 2021-05-18 14:34 | ERPHSYRPT ---
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 Or it could possibly be a urinary tract infection she does have bilateral CVA pain and some urinary tract symptoms. Does include frequency urgency. Timing/Duration: day(s) (3) Activities at Onset: activity Quality: cramping Severity of Pain-Max: moderate Severity of Pain-Current: moderate Modifying Factors: Improves With: movement, position Associated Symptoms: back Previous symptoms: same symptoms as today Allergies/Adverse Reactions: Penicillins Adverse Reaction (Verified 05/18/21 13:42) Home Medications: Cholecalciferol (Vitamin D3) [Vitamin D3] 1 ea UD 05/18/21 [History] Hx Tetanus, Diphtheria Vaccination/Date Given: No Hx Influenza Vaccination/Date Given: No Hx Pneumococcal Vaccination/Date Given: No Immunizations Up to Date: Yes Travel Risk - International Travel Have you traveled outside of the country in past 3 weeks: No - Coronavirus Screening Are you exhibiting any of the following symptoms?: No Close contact with a COVID-19 positive Pt in past 14-21 Days: No - Vaccine Status Have you recieved a Covid-19 vaccination: No - Past Medical History Pertinent Past Medical History: Yes Neurological History: No Pertinent History ENT History: No Pertinent History Cardiac History: No Pertinent History Respiratory History: No Pertinent History Endocrine Medical History: No Pertinent History Musculoskeletal History: No Pertinent History GI Medical History: No Pertinent History History: No Pertinent History Psycho-Social History: Anxiety, Depression Female Reproductive Disorders: Other Other Medical History: PCOS,pstd , psot 05/09/20 - Past Surgical History Past Surgical History: Yes Neuro Surgical History: No Pertinent History Cardiac: No Pertinent History Respiratory: No Pertinent History Gastrointestinal: Cholecystectomy Genitourinary: No Pertinent History Musculoskeletal: No Pertinent History Female Surgical History: No Pertinent History Other Surgical History: Left Foot Surgery - Social History Smoking Status: Never smoker Exposure to second hand smoke: No Drug Use: none Patient Lives Alone: No - Female History Hx Last Menstrual Period: 04/21 Hx Now: No - Nursing Vital Signs Nursing Vital Signs: Initial Vital Signs Temperature 96.0 F 05/18/21 13:30 Pulse Rate 72 05/18/21 13:30 Respiratory Rate 18 05/18/21 13:30 Blood Pressure 130/87 05/18/21 13:30 O2 Sat by Pulse Oximetry 96 05/18/21 13:30 Pain Scale Pain Intensity [Lower Back] 4 Pain Intensity 5 - Physical Exam General Appearance: no apparent distress, alert Eye Exam: PERRL/EOMI, eyes nml inspection Ears, Nose, Throat Exam: normal ENT inspection, pharynx normal, moist mucous membranes Neck Exam: normal inspection, non-tender, supple, full range of motion Respiratory Exam: normal breath sounds, lungs clear, No respiratory distress Cardiovascular Exam: regular rate/rhythm, normal heart sounds Gastrointestinal/Abdomen Exam: soft, No tenderness, No mass Back Exam: CVA tenderness, No vertebral tenderness Extremity Exam: normal inspection, normal range of motion, pelvis stable Neurologic Exam: alert, oriented x 3, cooperative, normal mood/affect, nml cerebellar function, sensation nml, No motor deficits Skin Exam: normal color, warm, dry SpO2: 96 - Course Nursing assessment & vital signs reviewed: Yes - Radiology Exams L-Spine X-ray Interpretation: Reviewed by me (Negative for any acute findings) Ordered Tests: Active Orders 24 hr Category Date Time Status LUMBAR COMPLETE (MIN 4 VIEWS) Stat Exams 05/18/21 14:00 Completed UA W/RFX UR CULTURE Stat Lab 05/18/21 15:00 Completed Lab/Rad Data: Laboratory Results 05/18/21 Range/Units 15:00 Urine Color YELLOW (YELLOW) Urine Appearance CLEAR (CLEAR) Urine pH 5.0 (5-6) Ur Specific [place] 1.019 (1.005-1.025) Urine Protein NEGATIVE (Negative) Urine Ketones NEGATIVE (NEGATIVE) Urine Blood NEGATIVE (0-5) Ramsey/ul Urine Nitrite NEGATIVE (NEGATIVE) Urine Bilirubin NEGATIVE (NEGATIVE) Urine Urobilinogen NEGATIVE (0-1) mg/dL Ur Leukocyte Esterase TRACE (NEGATIVE) Urine WBC (Auto) 3-5 (0-5) /HPF Urine RBC (Auto) NONE (0-2) /HPF U Epithel Cells (Auto) RARE (FEW) /HPF Urine Mucus (Auto) SLIGHT (NEGATIVE) /HPF Urine Culture Reflexed NO (NO) Urine Glucose NEGATIVE (NEGATIVE) mg/dL - Progress Progress: unchanged - Departure Departure Disposition: Home Clinical Impression: Lumbar strain Condition: Stable Critical Care Time: No Referrals: RAGHAVENDRA GRANT NP [Primary Care Provider] - Follow up/PCP as directed Instructions: Low Back Pain (DC) Prescriptions: Diclofenac Sodium 50 mg [Voltaren 50 mg] 50 mg PO TID 10 Days #30 tab
--- NOTE | 2021-05-18 14:42 | XRAY ---
Indication: Chronic back pain. Comparison: None. 5 view lumbar spine demonstrates 5 lumbar segments with minimal levoscoliosis centered at L4, mild L5-S1 disc space narrowing with endplate spurring, and IUD in situ. No other bony, articular, or soft tissue abnormalities.
[2021-05-18 15:11] LABS: Appearance CLEAR (CLEAR); Bilirubin NEGATIVE (NEGATIVE); Blood NEGATIVE Ery/ul (0-5); Epithelial Cells RARE /HPF (FEW); Glucose NEGATIVE (NEGATIVE); Ketones NEGATIVE (NEGATIVE); Leukocyte Esterase TRACE (NEGATIVE); Mucus SLIGHT /HPF (NEGATIVE); Nitrite NEGATIVE (NEGATIVE); Protein,Urine Dip NEGATIVE (Negative); Specific Gravity 1.019 (1.005-1.025); Urobilinogen NEGATIVE mg/dL (0-1)
== END 2021-05-18 16:05 | disposition home or self-care (01) ==
LOC: ED 13:18
DX: S39.012A Strain of muscle, fascia and tendon of lower back, initial encounter (principal)
CPT/HCPCS: 72110; 81001; 99284

== ENCOUNTER 2021-10-19 09:10 | Emergency (ER) | payer OTHER ==
--- NOTE | 2021-10-19 09:35 | ERPHSYRPT ---
- History of Present Illness Time Seen by Provider: 10/19/21 09:34 Source: patient Exam Limitations: no limitations Patient Subjective Stated Complaint: pt co nausea, dizziness, headache for a couple days,sore throat, no fever at home. Triage Nursing Assessment: pt alert, walked in, resp easy, skin w/d/p, face mask in place, abd soft. no cough Physician History: This is a 30-year-old white female patient who presented with dizziness, fever, chills, sore throat and headache that has been present for approximately 2 days. The fever is new. Patient has associated muscle aches and pains. She has no known exposure to anyone with similar symptoms or anyone diagnosed with flu or COVID. She has not been vaccinated against COVID-19 virus. She has no nausea vomiting or diarrhea. She denies chest pain. She has only a mild cough per her report. She has no earaches. Patient has a history of gastroesophageal reflux disease. She denies neck pain. Timing/Duration: day(s) (2 to 3 days) Cough Quality/Degree: no cough, mild Possible Cause: no prior episodes Associated Symptoms: fever, chills, dizziness, muscle aches, sore throat Allergies/Adverse Reactions: Penicillins Adverse Reaction (Verified 10/19/21 09:26) Home Medications: Cholecalciferol (Vitamin D3) [Vitamin D3] 1 ea UD 05/18/21 [History] B-Complex with Vitamin C [Vitamin B-Complex & C] 1 ea DAILY 10/19/21 [History] Omeprazole 1 ea DAILY 10/19/21 [History] Hx Tetanus, Diphtheria Vaccination/Date Given: No Hx Influenza Vaccination/Date Given: No Hx Pneumococcal Vaccination/Date Given: No Immunizations Up to Date: Yes Travel Risk - International Travel Have you traveled outside of the country in past 3 weeks: No - Coronavirus Screening Are you exhibiting any of the following symptoms?: Yes Symptoms: Fever, Cough: New Onset, Headaches/Body Aches/Fatigue Close contact with a COVID-19 positive Pt in past 14-21 Days: No - Vaccine Status Have you recieved a Covid-19 vaccination: No - Review of Systems Constitutional: Fever, Chills Eyes: No Symptoms Ears, Nose, & Throat: Throat Pain Respiratory: Cough Cardiac: No Symptoms Abdominal/Gastrointestinal: No Symptoms Genitourinary Symptoms: No Symptoms Musculoskeletal: Arthralgias, Myalgias Skin: No Symptoms Neurological: Dizziness, Headache Psychological: No Symptoms Endocrine: No Symptoms Hematologic/Lymphatic: No Symptoms Immunological/Allergic: No Symptoms All Other Systems: Reviewed and Negative - Past Medical History Pertinent Past Medical History: Yes Neurological History: No Pertinent History ENT History: No Pertinent History Cardiac History: No Pertinent History Respiratory History: No Pertinent History Endocrine Medical History: No Pertinent History Musculoskeletal History: No Pertinent History GI Medical History: No Pertinent History History: No Pertinent History Psycho-Social History: Anxiety, Depression Female Reproductive Disorders: Other Other Medical History: PCOS,pstd , psot 05/09/20 - Past Surgical History Past Surgical History: Yes Neuro Surgical History: No Pertinent History Cardiac: No Pertinent History Respiratory: No Pertinent History Gastrointestinal: Cholecystectomy Genitourinary: No Pertinent History Musculoskeletal: No Pertinent History Female Surgical History: No Pertinent History Other Surgical History: Left Foot Surgery - Social History Smoking Status: Never smoker Exposure to second hand smoke: No Drug Use: none Patient Lives Alone: No - Female History Hx Last Menstrual Period: october 15 Hx Now: No - Nursing Vital Signs Nursing Vital Signs: Initial Vital Signs Temperature 100 F 10/19/21 09:21 Pulse Rate 78 10/19/21 09:21 Respiratory Rate 18 10/19/21 09:21 Blood Pressure 103/71 10/19/21 09:21 O2 Sat by Pulse Oximetry 96 10/19/21 09:21 Pain Scale Pain Intensity 4 - Physical Exam General Appearance: no apparent distress, alert, anxiety Eye Exam: PERRL/EOMI, eyes nml inspection Ears, Nose, Throat Exam: normal ENT inspection, moist mucous membranes, pharyngeal erythema Neck Exam: normal inspection, non-tender, supple, full range of motion Respiratory Exam: normal breath sounds, lungs clear, airway intact, No chest tenderness, No respiratory distress Cardiovascular Exam: regular rate/rhythm, normal heart sounds, normal peripheral pulses Gastrointestinal/Abdomen Exam: soft, normal bowel sounds, No tenderness Pelvic Exam: not done Rectal Exam: not done Back Exam: normal inspection, normal range of motion, No CVA tenderness, No vertebral tenderness Extremity Exam: normal inspection, normal range of motion, pelvis stable Neurologic Exam: alert, oriented x 3, cooperative, 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, normal mood/affect, nml cerebellar function, nml station & gait, sensation nml Skin Exam: normal color, warm, dry Lymphatic Exam: No adenopathy SpO2 Interpretation: normal SpO2: 96 O2 Delivery: Room Air - Course Nursing assessment & vital signs reviewed: Yes Ordered Tests: Active Orders 24 hr Category Date Time Status IV Insertion STAT Care 10/19/21 09:36 Active Pulse Oximetry (ED) STAT Care 10/19/21 09:36 Active CHEST 1 VIEW (PORTABLE) Stat Exams 10/19/21 10:45 Taken BLOOD CULTURE Stat Lab 10/19/21 09:40 Ordered CBC W DIFF Stat Lab 10/19/21 09:40 Completed CMP Stat Lab 10/19/21 09:40 Completed HCG,QUALITATIVE URINE Stat Lab 10/19/21 09:47 Completed [place] Screen Stat Lab 10/19/21 09:40 Completed UA W/RFX CULTURE Stat Lab 10/19/21 09:53 Completed Medication Summary Discontinued Medications Generic Name Dose Route Start Last Admin Trade Name Freq PRN Reason Stop Dose Admin Hydrocodone Bitart/Acetaminophen 10 ml 10/19/21 10:07 10/19/21 10:24 Hydrocodone/Acetaminophen 5 Ml Udcup PO 10/19/21 10:08 10 ml STAT STA Administration Hydrocodone Bitart/Acetaminophen Confirm 10/19/21 10:22 Hydrocodone/Acetaminophen 5 Ml Udcup Administered 10/19/21 10:23 Dose 10 ml .ROUTE .STK-MED ONE Methylprednisolone Sodium 0 mg 10/19/21 10:07 10/19/21 10:25 Succinate 125 mg/ Sterile IV 10/19/21 10:08 125 mg Water 2 ml STAT ONE Administration Sodium Chloride 1,000 mls @ 999 mls/hr 10/19/21 09:36 10/19/21 09:53 Sodium Chloride 0.9% 1000 Ml IV 10/19/21 10:36 999 mls/hr .[id number] STA Administration Sodium Chloride Confirm 10/19/21 09:52 Sodium Chloride 0.9% 1000 Ml Administered 10/19/21 09:53 Dose 1,000 mls @ ud .ROUTE .STK-MED ONE Methylprednisolone Sodium Succinate Confirm 10/19/21 10:22 Methylprednis Sod Succ 125 Mg/2 Ml Vial Administered 10/19/21 10:23 Dose 125 mg .ROUTE .STK-MED ONE Sterile Water Confirm 10/19/21 10:21 Water For Injection,Sterile 10 Ml Vial Administered 10/19/21 10:22 Dose 10 ml IJ .K-MED ONE Lab/Rad Data: Laboratory Result Diagrams 10/19/21 09:40 10/19/21 09:40 Laboratory Results 10/19/21 10/19/21 10/19/21 Range/Units 09:53 09:47 09:40 WBC (4.0-10.5) x10^3/uL RBC (4.1-5.4) x10^6/uL Hgb (12.0-16.0) g/dL Hct (35-47) % MCV (78-100) fL MCH (26-32) pg MCHC (32-36) g/dL RDW (11.5-14.0) % Plt Count (150-450) x10^3/uL MPV (7.5-11.0) fL Gran % (36.0-66.0) % Immature Gran % (Auto) (0.00-0.4) % Nucleat RBC Rel Count (0.00-0.1) % Eos # (Auto) (0-0.5) x10^3/uL Immature Gran # (Auto) (0.00-0.03) x10^3u/L Absolute Lymphs (auto) (1.0-4.6) x10^3/uL Absolute Monos (auto) (0.0-1.3) x10^3/uL Absolute Nucleated RBC (0.00-0.01) x10^3u/L Lymphocytes % (24.0-44.0) % Monocytes % (0.0-12.0) % Eosinophils % (0.00-5.0) % Basophils % (0.0-0.4) % Absolute Granulocytes (1.4-6.9) x10^3/uL Basophils # (0-0.4) x10^3/uL Sodium (137-145) mmol/L Potassium (3.5-5.1) mmol/L Chloride (98-107) mmol/L Carbon Dioxide (22-30) mmol/L Anion Gap (5-15) MEQ/L BUN (7-17) mg/dL Creatinine (0.52-1.04) mg/dL Estimated GFR ML/MIN Glucose (74-106) mg/dL Calcium (8.4-10.2) mg/dL Total Bilirubin (0.2-1.3) mg/dL AST (14-36) U/L ALT (0-35) U/L Alkaline Phosphatase (38-126) U/L Serum Total Protein (6.3-8.2) g/dL Albumin (3.5-5.0) g/dL Urinalys Dipstick Clnc MAIN LAB Urine Color YELLOW (YELLOW) Urine Appearance CLEAR (CLEAR) Urine pH 5.5 (5-6) Ur Specific [place] >=1.030 (1.005-1.025) POC Urine Protein Conf 30 (Negative) Urine Ketones TRACE (NEGATIVE) Urine Nitrite NEGATIVE (NEGATIVE) Urine Bilirubin SMALL (NEGATIVE) Urine Urobilinogen 0.2 (0-1) mg/dL Urine Leukocytes NEGATIVE (NEGATIVE) Urine WBC (Auto) 3-5 (0-5) /HPF Urine RBC (Auto) 0-2 (0-2) /HPF U Hyaline Cast (Auto) 0-2 (0-2) /LPF U Epithel Cells (Auto) RARE (FEW) /HPF Urine RBC NEGATIVE (0-5) Ramsey/ul Urine Mucus (Auto) MANY (NEGATIVE) /HPF Ur Culture Indicated? NO Urine Glucose NEGATIVE (NEGATIVE) mg/dL Urine HCG, Qual NEGATIVE (Negative) Monoscreen (Negative) Influenza Type A Ag NEGATIVE (NEGATIVE) Influenza Type B Ag NEGATIVE (NEGATIVE) RSV (PCR) NEGATIVE (Negative) SARS-CoV-2 (PCR) POSITIVE A (NEGATIVE) Group A Strep Antibody (NEGATIVE) 10/19/21 10/19/21 10/19/21 Range/Units 09:40 09:40 09:40 WBC (4.0-10.5) x10^3/uL RBC (4.1-5.4) x10^6/uL Hgb (12.0-16.0) g/dL Hct (35-47) % MCV (78-100) fL MCH (26-32) pg MCHC (32-36) g/dL RDW (11.5-14.0) % Plt Count (150-450) x10^3/uL MPV (7.5-11.0) fL Gran % (36.0-66.0) % Immature Gran % (Auto) (0.00-0.4) % Nucleat RBC Rel Count (0.00-0.1) % Eos # (Auto) (0-0.5) x10^3/uL Immature Gran # (Auto) (0.00-0.03) x10^3u/L Absolute Lymphs (auto) (1.0-4.6) x10^3/uL Absolute Monos (auto) (0.0-1.3) x10^3/uL Absolute Nucleated RBC (0.00-0.01) x10^3u/L Lymphocytes % (24.0-44.0) % Monocytes % (0.0-12.0) % Eosinophils % (0.00-5.0) % Basophils % (0.0-0.4) % Absolute Granulocytes (1.4-6.9) x10^3/uL Basophils # (0-0.4) x10^3/uL Sodium 136 L (137-145) mmol/L Potassium 3.7 (3.5-5.1) mmol/L Chloride 105 (98-107) mmol/L Carbon Dioxide 21 L (22-30) mmol/L Anion Gap 14.1 (5-15) MEQ/L BUN 14 (7-17) mg/dL Creatinine 0.77 (0.52-1.04) mg/dL Estimated GFR > 60.0 ML/MIN Glucose 105 (74-106) mg/dL Calcium 9.4 (8.4-10.2) mg/dL Total Bilirubin 0.70 (0.2-1.3) mg/dL AST 25 (14-36) U/L ALT 34 (0-35) U/L Alkaline Phosphatase 101 (38-126) U/L Serum Total Protein 7.7 (6.3-8.2) g/dL Albumin 4.3 (3.5-5.0) g/dL Urinalys Dipstick Clnc Urine Color (YELLOW) Urine Appearance (CLEAR) Urine pH (5-6) Ur Specific [place] (1.005-1.025) POC Urine Protein Conf (Negative) Urine Ketones (NEGATIVE) Urine Nitrite (NEGATIVE) Urine Bilirubin (NEGATIVE) Urine Urobilinogen (0-1) mg/dL Urine Leukocytes (NEGATIVE) Urine WBC (Auto) (0-5) /HPF Urine RBC (Auto) (0-2) /HPF U Hyaline Cast (Auto) (0-2) /LPF U Epithel Cells (Auto) (FEW) /HPF Urine RBC (0-5) Ramsey/ul Urine Mucus (Auto) (NEGATIVE) /HPF Ur Culture Indicated? Urine Glucose (NEGATIVE) mg/dL Urine HCG, Qual (Negative) Monoscreen NEGATIVE (Negative) Influenza Type A Ag (NEGATIVE) Influenza Type B Ag (NEGATIVE) RSV (PCR) (Negative) SARS-CoV-2 (PCR) (NEGATIVE) Group A Strep Antibody NOT DETECTED (NEGATIVE) 10/19/21 Range/Units 09:40 WBC 5.8 (4.0-10.5) x10^3/uL RBC 4.47 (4.1-5.4) x10^6/uL Hgb 13.9 (12.0-16.0) g/dL Hct 41.1 (35-47) % MCV 91.9 (78-100) fL MCH 31.1 (26-32) pg MCHC 33.8 (32-36) g/dL RDW 12.2 (11.5-14.0) % Plt Count 225 (150-450) x10^3/uL MPV 9.8 (7.5-11.0) fL Gran % 80.8 H (36.0-66.0) % Immature Gran % (Auto) 0.3 (0.00-0.4) % Nucleat RBC Rel Count 0.0 (0.00-0.1) % Eos # (Auto) 0.02 (0-0.5) x10^3/uL Immature Gran # (Auto) 0.02 (0.00-0.03) x10^3u/L Absolute Lymphs (auto) 0.35 L (1.0-4.6) x10^3/uL Absolute Monos (auto) 0.71 (0.0-1.3) x10^3/uL Absolute Nucleated RBC 0.00 (0.00-0.01) x10^3u/L Lymphocytes % 6.0 L (24.0-44.0) % Monocytes % 12.3 H (0.0-12.0) % Eosinophils % 0.3 (0.00-5.0) % Basophils % 0.3 (0.0-0.4) % Absolute Granulocytes 4.67 (1.4-6.9) x10^3/uL Basophils # 0.02 (0-0.4) x10^3/uL Sodium (137-145) mmol/L Potassium (3.5-5.1) mmol/L Chloride (98-107) mmol/L Carbon Dioxide (22-30) mmol/L Anion Gap (5-15) MEQ/L BUN (7-17) mg/dL Creatinine (0.52-1.04) mg/dL Estimated GFR ML/MIN Glucose (74-106) mg/dL Calcium (8.4-10.2) mg/dL Total Bilirubin (0.2-1.3) mg/dL AST (14-36) U/L ALT (0-35) U/L Alkaline Phosphatase (38-126) U/L Serum Total Protein (6.3-8.2) g/dL Albumin (3.5-5.0) g/dL Urinalys Dipstick Clnc Urine Color (YELLOW) Urine Appearance (CLEAR) Urine pH (5-6) Ur Specific [place] (1.005-1.025) POC Urine Protein Conf (Negative) Urine Ketones (NEGATIVE) Urine Nitrite (NEGATIVE) Urine Bilirubin (NEGATIVE) Urine Urobilinogen (0-1) mg/dL Urine Leukocytes (NEGATIVE) Urine WBC (Auto) (0-5) /HPF Urine RBC (Auto) (0-2) /HPF U Hyaline Cast (Auto) (0-2) /LPF U Epithel Cells (Auto) (FEW) /HPF Urine RBC (0-5) Ramsey/ul Urine Mucus (Auto) (NEGATIVE) /HPF Ur Culture Indicated? Urine Glucose (NEGATIVE) mg/dL Urine HCG, Qual (Negative) Monoscreen (Negative) Influenza Type A Ag (NEGATIVE) Influenza Type B Ag (NEGATIVE) RSV (PCR) (Negative) SARS-CoV-2 (PCR) (NEGATIVE) Group A Strep Antibody (NEGATIVE) - Progress Progress: improved, re-examined Air Movement: good - Departure Departure Disposition: Home Clinical Impression: COVID-19 virus infection, Mild dehydration Condition: Stable Critical Care Time: No Referrals: RAGHAVENDRA GRANT NP [Primary Care Provider] - Follow up/PCP as directed Additional Instructions: Drink plenty of fluids. Quarantine yourself per your employer's policy for COVID-19 infection. Take your medication as prescribed. Prescriptions: Hydrocodone/Acetaminophen [Hydrocodone-Acetamn 7.5-325/15] 10 ml PO Q8H PRN PRN #120 ml MDD 30 ml PRN Reason: Cough Prednisone 10 mg [Deltasone 10 mg] 10 mg PO TID #12 tablet
[2021-10-19] MEDS ORDERED: Sodium Chloride 0.9% 1000 ML 1,000 ML IV STA (09:36)
[2021-10-19] MEDS ORDERED: Sodium Chloride 0.9% 1000 ML 1,000 ML ONE (09:52)
[2021-10-19 09:54] LABS: Absolute Neutrophil Ct (ANC) 4.67 x10^3/uL (1.4-6.9); Basophil (Absolute #) 0.02 x10^3/uL (0-0.4); Eosinophil % 0.3 % (0.00-5.0); Eosinophil (Absolute #) 0.02 x10^3/uL (0-0.5); Hematocrit 41.1 % (35-47); Hemoglobin 13.9 g/dL (12.0-16.0); Lymphocyte (Absolute #) 0.35 x10^3/uL (1.0-4.6); Mean Cell Volume 91.9 fL (78-100); Mean Corpuscular Hemoglobin 31.1 pg (26-32); Mean Corpuscular Hgb Concent. 33.8 g/dL (32-36); Mean Platelet Volume 9.8 fL (7.5-11.0); Monocyte (Absolute #) 0.71 x10^3/uL (0.0-1.3); Monocytes % 12.3 % (0.0-12.0); Neutrophil % 80.8 % (36.0-66.0); Platelet Count 225 x10^3/uL (150-450); Red Blood Count 4.47 x10^6/uL (4.1-5.4); Red Cell Distribution Width 12.2 % (11.5-14.0); White Blood Count 5.8 x10^3/uL (4.0-10.5)
[2021-10-19] MEDS ORDERED: solu-MEDROL 125 MG, Sterile H2O 10 ml 2 ML IV ONE ×2 (10:07)
[2021-10-19] MEDS ORDERED: HYDROCODONE-ACETAMIN 2.5-108/5 ML SOLUTION PO STA (10:07)
[2021-10-19 10:12] LABS: ALBUMIN 4.3 g/dL (3.5-5.0); ALKALINE PHOSPHATASE 101 U/L (38-126); ANION GAP 14.1 MEQ/L (5-15); BLOOD UREA NITROGEN 14 mg/dL (7-17); CHLORIDE 105 mmol/L (98-107); Calcium 9.4 mg/dL (8.4-10.2); Carbon Dioxide 21 mmol/L (22-30); Creatinine 1 0.77 mg/dL (0.52-1.04); EST GLOMERULAR FILTRATION RATE > 60.0 ML/MIN; Glucose 105 mg/dL (74-106); Potassium 3.7 mmol/L (3.5-5.1); SGOT/AST 25 U/L (14-36); SGPT/ALT 34 U/L (0-35); SODIUM 136 mmol/L (137-145); Total Protein 7.7 g/dL (6.3-8.2)
[2021-10-19 10:16] LABS: Epithelial Cells RARE /HPF (FEW); Hyaline Casts 0-2 /LPF (0-2); Mucus MANY /HPF (NEGATIVE); RBC 0-2 /HPF (0-2)
[2021-10-19 10:18] LABS: Appearance CLEAR (CLEAR); Bilirubin SMALL (NEGATIVE); Glucose NEGATIVE (NEGATIVE); Ketones TRACE (NEGATIVE); Specific Gravity >=1.030 (1.005-1.025); Urine Cultured Indicated? NO
[2021-10-19 10:19] LABS: Dipstick done @ ? MAIN LAB; Nitrite NEGATIVE (NEGATIVE); Ph 5.5 (5-6); Protein,Urine Dip 30 (Negative); RBC NEGATIVE Ery/ul (0-5); Urobilinogen 0.2 mg/dL (0-1)
[2021-10-19] MEDS ORDERED: Sterile H2O 10 ml IJ ONE (10:21)
[2021-10-19] MEDS ORDERED: HYDROCODONE-ACETAMIN 2.5-108/5 ML SOLUTION ONE (10:22)
[2021-10-19] MEDS ORDERED: solu-MEDROL ONE (10:22)
[2021-10-19 10:33] LABS: INFLUENZA A NEGATIVE (NEGATIVE); INFLUENZA B NEGATIVE (NEGATIVE); RESPIRATORY SYNCTIAL VIRUS NEGATIVE (Negative)
[2021-10-19 10:36] LABS: SARS-CoV-2 Xpert Express POSITIVE (NEGATIVE)
--- NOTE | 2021-10-19 10:54 | XRAY ---
Indication: Fever and chills. Comparison: February 26, 2021. Portable chest again demonstrates normal heart and lungs. Bony thorax intact. No new/acute findings.
[2021-10-19 11:21] VITALS: BP 113/48; PULSE 83; O2SAT 95
[2021-10-19 13:28] LABS: Slide Review 1 YES
== END 2021-10-19 11:21 | disposition home or self-care (01) ==
LOC: ED 09:10
DX: U07.1 COVID-19 (principal); E86.0 Dehydration; R42 Dizziness and giddiness; R50.9 Fever, unspecified; J02.9 Acute pharyngitis, unspecified; R51.9 Headache, unspecified; M79.10 Myalgia, unspecified site; Z79.899 Other long term (current) drug therapy; Z79.891 Long term (current) use of opiate analgesic; Z79.52 Long term (current) use of systemic steroids; Z28.310 Unvaccinated for COVID-19
CPT/HCPCS: 0241U; 36000; 36415; 71045; 80053; 81015; 81025; 85025; 86308; 87040; 87651; 94760; 96360; 96374; 99284; J2930; A9270-GY

== ENCOUNTER 2022-01-31 21:48 | Emergency (ER) | payer OTHER ==
[2022-01-31] MEDS ORDERED: TORAdol 30 mg Injection IM ONE (22:06)
[2022-01-31 22:07] VITALS: BP 124/92; PULSE 71; O2SAT 97
[2022-01-31] MEDS ORDERED: CLEOCIN 150 MG CAPSULE PO ONE (22:07)
[2022-01-31] MEDS ORDERED: TORAdol 30 mg Injection ONE (22:08)
[2022-01-31] MEDS ORDERED: CLEOCIN 150 MG CAPSULE ONE (22:09)
--- NOTE | 2022-01-31 22:10 | ERPHSYRPT ---
- History of Present Illness Time Seen by Provider: 01/31/22 22:00 Source: patient Exam Limitations: no limitations Patient Subjective Stated Complaint: pt states "I have had a bad tooth for a while now but today it started swelling really bad. I don't have an appt until n . I tried to call my dentist but they cannot get me in any sooner." Triage Nursing Assessment: pt ambulatory to bed by self, pt alert and oriented x3, pt c/o R lower tooth pain from a previous broken tooth, pt R side of face swollen, obvious broken tooth on r lower side Physician History: Patient is a 31-year-old female presents emergency department for evaluation of jaw swelling. Patient states she has had right lower jaw pain for several weeks. Patient currently has an appointment scheduled with a dentist however the dentist has been canceling. Patient states today that jaw swelling occurred. Pain described as an ache that is localized. No radiation. Patient has a carious tooth adjacent to the swelling. No trauma. No fever. No nausea vomiting. Patient denies the possibility of . Patient is allergic to penicillin. Patient otherwise healthy. She voices no other complaints or concerns at this time. Portions of this note were created with voice recognition technology. There may be grammatical, spelling, punctuation or sound alike errors Timing/Duration: today Severity: moderate (Swelling occurred today) Modifying Factors: Improves With: other (Mastication and palpation to the swelling reproduce pain.) Associated Symptoms: denies symptoms Allergies/Adverse Reactions: Penicillins Adverse Reaction (Verified 01/31/22 21:55) Home Medications: Cholecalciferol (Vitamin D3) [Vitamin D3] 1 ea UD 05/18/21 [History] B-Complex with Vitamin C [Vitamin B-Complex & C] 1 ea DAILY 10/19/21 [History] Dapagliflozin Propanediol [Farxiga] 10 mg PO DAILY 01/31/22 [History] Hx Tetanus, Diphtheria Vaccination/Date Given: Yes Hx Influenza Vaccination/Date Given: No Hx Pneumococcal Vaccination/Date Given: No Immunizations Up to Date: Yes Travel Risk - International Travel Have you traveled outside of the country in past 3 weeks: No - Coronavirus Screening Are you exhibiting any of the following symptoms?: No Close contact with a COVID-19 positive Pt in past 14-21 Days: No - Vaccine Status Have you recieved a Covid-19 vaccination: No - Review of Systems Constitutional: No Symptoms, No Fever, No Chills Eyes: No Symptoms Ears, Nose, & Throat: No Symptoms Respiratory: No Symptoms, No Cough, No Dyspnea Cardiac: No Symptoms, No Chest Pain, No Edema, No Syncope Abdominal/Gastrointestinal: No Symptoms, No Abdominal Pain, No Nausea, No Vomiting, No Diarrhea Genitourinary Symptoms: No Symptoms, No Dysuria Musculoskeletal: No Symptoms, No Back Pain, No Neck Pain Skin: No Symptoms, No Rash Neurological: No Symptoms, No Dizziness, No Focal Weakness, No Sensory Changes Psychological: No Symptoms Endocrine: No Symptoms Hematologic/Lymphatic: No Symptoms Immunological/Allergic: No Symptoms All Other Systems: Reviewed and Negative - Past Medical History Pertinent Past Medical History: Yes Neurological History: No Pertinent History ENT History: No Pertinent History Cardiac History: No Pertinent History Respiratory History: No Pertinent History Endocrine Medical History: No Pertinent History Musculoskeletal History: No Pertinent History GI Medical History: No Pertinent History History: No Pertinent History Psycho-Social History: Anxiety, Depression Female Reproductive Disorders: Other Other Medical History: PCOS,pstd , psot 05/09/20 - Past Surgical History Past Surgical History: Yes Neuro Surgical History: No Pertinent History Cardiac: No Pertinent History Respiratory: No Pertinent History Gastrointestinal: Cholecystectomy Genitourinary: No Pertinent History Musculoskeletal: No Pertinent History Female Surgical History: No Pertinent History Other Surgical History: Left Foot Surgery, gastric bypass - Social History Smoking Status: Former smoker Exposure to second hand smoke: No Drug Use: none Patient Lives Alone: No - Female History Hx Last Menstrual Period: 01/30/2022 Hx Now: No - Nursing Vital Signs Nursing Vital Signs: Initial Vital Signs Temperature 97.0 F 01/31/22 21:58 Pulse Rate 71 01/31/22 21:58 Respiratory Rate 18 01/31/22 21:58 Blood Pressure 124/92 01/31/22 21:58 O2 Sat by Pulse Oximetry 97 01/31/22 21:58 Pain Scale Pain Intensity 8 - Physical Exam General Appearance: no apparent distress, alert Eye Exam: PERRL/EOMI, eyes nml inspection Ears, Nose, Throat Exam: normal ENT inspection, TMs normal, pharynx normal, moist mucous membranes, other (There is swelling at tooth #30 and 31.) Neck Exam: normal inspection, non-tender, supple, full range of motion Respiratory Exam: normal breath sounds, lungs clear, airway intact, No re spiratory distress Cardiovascular Exam: regular rate/rhythm, normal heart sounds, normal peripheral pulses Gastrointestinal/Abdomen Exam: soft, normal bowel sounds, No tenderness, No mass Back Exam: normal inspection, normal range of motion, No CVA tenderness, No vertebral tenderness Extremity Exam: normal inspection, normal range of motion, pelvis stable Neurologic Exam: alert, oriented x 3, cooperative, normal mood/affect, nml cerebellar function, nml station & gait, sensation nml, No motor deficits Skin Exam: normal color, warm, dry, No rash Lymphatic Exam: No adenopathy SpO2 Interpretation: normal SpO2: 97 O2 Delivery: Room Air - Course Nursing assessment & vital signs reviewed: Yes Ordered Tests: Medication Summary Discontinued Medications Generic Name Dose Route Start Last Admin Trade Name Vegaq PRN Reason Stop Dose Admin Clindamycin HCl 300 mg 01/31/22 22:07 01/31/22 22:10 Clindamycin Hcl 150 Mg Capsule PO 01/31/22 22:08 300 mg STAT ONE Administration Clindamycin HCl Confirm 01/31/22 22:09 Clindamycin Hcl 150 Mg Capsule Administered 01/31/22 22:10 Dose 300 mg .ROUTE .STK-MED ONE Ketorolac Tromethamine 30 mg 01/31/22 22:06 01/31/22 22:10 Ketorolac Tromethamine 30 Mg/Ml Inj IM 01/31/22 22:07 30 mg STAT ONE Administration Ketorolac Tromethamine Confirm 01/31/22 22:08 Ketorolac Tromethamine 30 Mg/Ml Inj Administered 01/31/22 22:09 Dose 30 mg .ROUTE .STK-MED ONE - Progress Progress: improved Progress Note: Patient reassessed. She feels well. Patient received Toradol IM for pain c ontrol. Patient received a dose of clindamycin 01/31/22 22:15 Patient currently has a follow-up appointment with her dentist. Patient will start the antibiotics. A prescription for clindamycin forwarded to patient's pharmacy. [id number] analgesics as needed. Patient agrees to follow-up with her dentist within 48 hours for evaluation. She voices no other complaints or concerns at this time. Portions of this note were created with voice recognition technology. There may be grammatical, spelling, punctuation or sound alike errors 01/31/22 22:19 Counseled pt/family regarding: diagnosis, need for follow-up - Departure Departure Disposition: Home Clinical Impression: Dental abscess, Pain, dental, Carious teeth Condition: Stable Critical Care Time: No Referrals: RAGHAVENDRA GRANT [employer] OPERATOR [Primary Care Provider] - Follow up/PCP as directed Instructions: Dental Pain (DC) Additional Instructions: Discharge/Care Plan KIRBY GUERRERO was seen on 01/31/22 in the Emergency Room. The patient was counseled regarding Diagnosis,Lab results, Imaging studies, need for follow up and when to return to the Emergency Room. Prescriptions given: Discharge Note I have spoken with the patient and/or caregivers. I have explained the patient's condition, diagnosis and treatment plan based on the information available to me at this time. I have answered the patient's and/or caregiver's questions and addressed any concerns. The patient and/or caregivers have as good understanding of the patient's diagnosis, condition and treatment plan as can be expected at this point. The vital signs have been stable. The patient's condition is stable and appropriate for discharge from the emergency department. The patient will pursue further outpatient evaluation with the primary care physician or other designated or consulting physician as outlined in the discharge instructions. The patient and/or caregivers are agreeable to this plan of care and follow-up instructions have been explained in detail. The patient and/or caregivers have received these instruction. The patient/and or caregivers are aware that any significant change in condition or worsening of symptoms should prompt an immediate return to this or the closest emergency department or call 911. Prescriptions: Clindamycin HCl 150 mg [Cleocin 150 mg Capsule] 2 cap PO QID #56 cap
== END 2022-01-31 22:24 | disposition home or self-care (01) ==
LOC: ED 21:48
DX: K04.7 Periapical abscess without sinus (principal); K08.89 Other specified disorders of teeth and supporting structures; K02.9 Dental caries, unspecified; R22.0 Localized swelling, mass and lump, head; Z79.899 Other long term (current) drug therapy; Z28.310 Unvaccinated for COVID-19
CPT/HCPCS: 96372; 99283; J1885; A9270-GY

== ENCOUNTER 2022-12-09 19:02 | Emergency (ER) | payer OTHER ==
--- NOTE | 2022-12-09 19:24 | ERPHSYRPT ---
- History of Present Illness Time Seen by Provider: 12/09/22 19:24 Source: patient Exam Limitations: no limitations Allergies/Adverse Reactions: Penicillins Adverse Reaction (Verified 01/31/22 21:55) Home Medications: Cholecalciferol (Vitamin D3) [Vitamin D3] 1 ea UD 05/18/21 [History] B-Complex with Vitamin C [Vitamin B-Complex & C] 1 ea DAILY 10/19/21 [History] Dapagliflozin Propanediol [Farxiga] 10 mg PO DAILY 01/31/22 [History] Hx Tetanus, Diphtheria Vaccination/Date Given: Yes Hx Influenza Vaccination/Date Given: No Hx Pneumococcal Vaccination/Date Given: No Travel Risk - Vaccine Status Have you recieved a Covid-19 vaccination: No - Past Medical History Pertinent Past Medical History: Yes Neurological History: No Pertinent History ENT History: No Pertinent History Cardiac History: No Pertinent History Respiratory History: No Pertinent History Endocrine Medical History: No Pertinent History Musculoskeletal History: No Pertinent History GI Medical History: No Pertinent History History: No Pertinent History Psycho-Social History: Anxiety, Depression Female Reproductive Disorders: Other Other Medical History: PCOS,pstd , psot 05/09/20 - Past Surgical History Past Surgical History: Yes Neuro Surgical History: No Pertinent History Cardiac: No Pertinent History Respiratory: No Pertinent History Gastrointestinal: Cholecystectomy Genitourinary: No Pertinent History Musculoskeletal: No Pertinent History Female Surgical History: No Pertinent History Other Surgical History: Left Foot Surgery, gastric bypass - Social History Smoking Status: Former smoker Exposure to second hand smoke: No Drug Use: none Patient Lives Alone: No - Departure Referrals: RAGHAVENDRA GRANT NP [Primary Care Provider] - Follow up/PCP as directed
== END 2022-12-09 21:00 | disposition left against medical advice (07) ==
LOC: ED 19:02
DX: Z53.21 Procedure and treatment not carried out due to patient leaving prior to being seen by health care provider (principal)

== ENCOUNTER 2023-09-06 14:21 | Emergency (ER) | payer OTHER ==
--- NOTE | 2023-09-06 14:30 | ERPHSYRPT ---
- History of Present Illness Time Seen by Provider: 09/06/23 14:30 Source: patient Exam Limitations: no limitations Physician History: This is a 32-year-old white female patient of nurse practitioner Adan who is A2 and is approximately 9 to 10 weeks . Approximate 7 weeks ago, patient was having some vaginal bleeding and an ultrasound was performed at [facility]. Patient was found on ultrasound to have a subchorionic bleed. She bled for another 2 days and then this bleeding vaginally stopped. Today, she had a sudden onset of sharp pain followed by passage of a blood clot vaginally. She did not think that she passed any tissue. Patient has a history of PCOS. Patient states she has had 2 live births and 2 pregnancies that did not make it to 20 weeks. Patient's expected date of delivery is 04/08/2024. Patient does not have abdominal pain. She has had no nausea vomiting or diarrhea symptoms. She has no chest pain or shortness of breath. Timing/Duration: today Activites at Onset: none Quality: sharpness, stabbing Onset Location: vaginal Pain Radiation: none Severity of Pain-Max: moderate Severity of Pain-Current: none Sexual intercourse history: non-contributory Associated Symptoms: vaginal discharge (Passage of blood clot prior to arrival) Allergies/Adverse Reactions: Penicillins Adverse Reaction (Verified 01/31/22 21:55) Home Medications: Cholecalciferol (Vitamin D3) [Vitamin D3] 1 ea UD 05/18/21 [History] B-Complex with Vitamin C [Vitamin B-Complex & C] 1 ea DAILY 10/19/21 [History] Hx Tetanus, Diphtheria Vaccination/Date Given: Yes Hx Influenza Vaccination/Date Given: No Hx Pneumococcal Vaccination/Date Given: No Travel Risk - International Travel Have you traveled outside of the country in past 3 weeks: No - Emerging Infectious Disease Are you exhibiting symptoms associated with any current EIDs: No - Review of Systems Constitutional: No Symptoms Eyes: No Symptoms Ears, Nose, & Throat: No Symptoms Respiratory: No Symptoms Cardiac: No Symptoms Abdominal/Gastrointestinal: No Symptoms, Other (Vaginal/suprapubic pain that has now subsided) Genitourinary Symptoms: Vaginal Bleeding (Decision of blood clot prior to arrival) Musculoskeletal: No Symptoms Skin: No Symptoms Neurological: No Symptoms Psychological: No Symptoms Endocrine: No Symptoms Hematologic/Lymphatic: No Symptoms Immunological/Allergic: No Symptoms All Other Systems: Reviewed and Negative - Past Medical History Pertinent Past Medical History: Yes Neurological History: No Pertinent History ENT History: No Pertinent History Cardiac History: No Pertinent History Respiratory History: No Pertinent History Endocrine Medical History: No Pertinent History Musculoskeletal History: No Pertinent History GI Medical History: No Pertinent History History: No Pertinent History Psycho-Social History: Anxiety, Depression Female Reproductive Disorders: Other Other Medical History: PCOS,pstd , psot 05/09/20 - Past Surgical History Past Surgical History: Yes Neuro Surgical History: No Pertinent History Cardiac: No Pertinent History Respiratory: No Pertinent History Gastrointestinal: Cholecystectomy Genitourinary: No Pertinent History Musculoskeletal: No Pertinent History Female Surgical History: No Pertinent History Other Surgical History: Left Foot Surgery, gastric bypass - Social History Smoking Status: Former smoker Exposure to second hand smoke: No Drug Use: none Patient Lives Alone: No - Nursing Vital Signs Nursing Vital Signs: Initial Vital Signs Temperature 97.4 F 09/06/23 14:28 Pulse Rate 96 H 09/06/23 14:28 Blood Pressure 120/79 09/06/23 14:28 O2 Sat by Pulse Oximetry 98 09/06/23 14:28 Pain Scale Pain Intensity 4 - Physical Exam General Appearance: no apparent distress, alert, thin Eye Exam: PERRL/EOMI, eyes nml inspection Ears, Nose, Throat Exam: normal ENT inspection, moist mucous membranes Neck Exam: normal inspection, non-tender, supple, full range of motion Respiratory Exam: No chest tenderness, No respiratory distress, No airway intact Gastrointestinal/Abdomen Exam: soft, normal bowel sounds, No tenderness, No guarding Pelvic Exam: not done Rectal Exam: not done Back Exam: normal inspection, normal range of motion, No CVA tenderness, No vertebral tenderness Extremity Exam: normal inspection, normal range of motion, pelvis stable Neurologic Exam: alert, oriented x 3, cooperative, vehicle body maker II-XII nml as tested, normal mood/affect, nml cerebellar function, nml station & gait, sensation nml Skin Exam: normal color, warm, dry Lymphatic Exam: No adenopathy SpO2 Interpretation: normal O2 Delivery: Room Air - Course Nursing assessment & vital signs reviewed: Yes Ordered Tests: Active Orders 24 hr Category Date Time Status CBC W DIFF Stat Lab 09/06/23 15:05 Completed CMP Stat Lab 09/06/23 15:05 Completed HCG, Quantitative (Inhouse) Stat Lab 09/06/23 15:05 Completed UA W/RFX UR CULTURE Stat Lab 09/06/23 15:05 Completed Lab/Rad Data: Laboratory Result Diagrams 09/06/23 15:05 09/06/23 15:05 Laboratory Results 09/06/23 09/06/23 09/06/23 Range/Units 15:05 15:05 15:05 WBC 8.5 (4.0-10.5) x10^3/uL RBC 3.93 L (4.1-5.4) x10^6/uL Hgb 11.7 L (12.0-16.0) g/dL Hct 35.0 (35-47) % MCV 89.1 (78-100) fL MCH 29.8 (26-32) pg MCHC 33.4 (32-36) g/dL RDW 12.4 (11.5-14.0) % Plt Count 305 (150-450) x10^3/uL MPV 8.6 (7.5-11.0) fL Gran % 64.6 (36.0-66.0) % Immature Gran % (Auto) 0.2 (0.00-0.4) % Nucleat RBC Rel Count 0.0 (0.00-0.1) % Eos # (Auto) 0.14 (0-0.5) x10^3/uL Immature Gran # (Auto) 0.02 (0.00-0.03) x10^3u/L Absolute Lymphs (auto) 2.27 (1.0-4.6) x10^3/uL Absolute Monos (auto) 0.56 (0.0-1.3) x10^3/uL Absolute Nucleated RBC 0.00 (0.00-0.01) x10^3u/L Lymphocytes % 26.6 (24.0-44.0) % Monocytes % 6.6 (0.0-12.0) % Eosinophils % 1.6 (0.00-5.0) % Basophils % 0.4 (0.0-0.4) % Absolute Granulocytes 5.50 (1.4-6.9) x10^3/uL Basophils # 0.03 (0-0.4) x10^3/uL Sodium 134 L (135-145) mmol/L Potassium 3.2 L (3.5-5.1) mmol/L Chloride 108 H (98-107) mmol/L Carbon Dioxide 19 L (22-30) mmol/L Anion Gap 10.4 (5-15) MEQ/L BUN 6 L (7-17) mg/dL Creatinine 0.48 L (0.52-1.04) mg/dL Estimated GFR 129.8 ML/MIN Glucose 82 (74-106) mg/dL Calcium 8.7 (8.4-10.2) mg/dL Total Bilirubin 0.60 (0.2-1.3) mg/dL AST 35 (14-36) U/L ALT 38 H (0-35) U/L Alkaline Phosphatase 65 (38-126) U/L Serum Total Protein 6.6 (6.3-8.2) g/dL Albumin 3.8 (3.5-5.0) g/dL Beta HCG, Quant [id number] mIU/ml Urine Color Yellow (Yellow) Urine Appearance Clear (Clear) Urine pH 7.0 (4.6-8.0) Ur Specific [place] 1.020 (1.005-1.030) Urine Protein Negative (Negative) Urine Glucose (UA) Negative (Negative) mg/dL Urine Ketones Negative (Negative) Urine Blood Negative (Negative) Urine Nitrite Negative (Negative) Urine Bilirubin Negative (Negative) Urine Urobilinogen 1.0 A (0.2) mg/dL Ur Leukocyte Esterase Moderate A (Negative) U Hyaline Cast (Auto) NONE SEEN (0-2) /LPF Urine Microscopic RBC NONE SEEN (0-5) /HPF Urine Microscopic WBC 3-5 (0-5) /HPF Ur Epithelial Cells Rare (None Seen) /HPF Urine Bacteria Rare A (None Seen) /HPF Urine Culture Reflexed NO (NO) - Progress Progress: unchanged Air Movement: good Progress Note: 09/06/23 15:02 My medical decision making and the assignment of moderate complexity to this patient's medical issue today is based on review of the patient's past medical history, review the patient's medication list, review the patient's drug allergy list, history present illness and physical findings on examination. The workup in this patient includes CBC, CMP, urinalysis, quantitative hCG. Patient did state that approximately 2 weeks ago her quantitative hCG was 27,000 per her recollection. We will hold off on ordering OB ultrasound. The patient already had one performed. It does not appear that she has had an ectopic but I will verify this once we receive the [facility] OB ultrasound report. Differential diagnosis is urinary tract infection, spontaneous miscarriage, subchorionic bleed 09/06/23 15:56 I reviewed the [facility] (outside facility) radiologist's impression of an OB transvaginal ultrasound dated 08/31/2023. There is a single live intrauterine gestation of measured gestational age of 8 weeks several subchorionic hemorrhage is not excluded. Close follow-up recommended. 09/06/23 16:10 I interpreted the patient's laboratory data results. The patient does have a urinary tract infection we will place her on Macrodantin. Her quantitative hCG is over 137,000. We will order an outpatient OB ultrasound and try to have that performed on 09/08/2023. Blood Culture(s) Obtained: No Counseled pt/family regarding: lab results, diagnosis, need for follow-up Medical Desision Making - Diagnostic Testing Diagnostic test were ordered, analyzed, and reviewed by me: Yes Radiological Interpretation: Reviewed by me, Teleradiologist Report (OB transvaginal ultrasound from outside facility dated 08/31/2023) - Risk of complications Low Risk: Low risk of morbidity from additional dx testing or treatment The pt has a mod risk of morbidity or mortality based on: Need for prescription drug management - Departure Departure Disposition: Home Clinical Impression: Urinary tract infection during , Vaginal bleeding in Condition: Stable Critical Care Time: No Referrals: RAGHAVENDRA GRANT NP [Primary Care Provider] - Follow up/PCP as directed Additional Instructions: Drink plenty of fluids. Bedrest until after you have your OB ultrasound performed next week. Take your antibiotics and other medications as prescribed. Prescriptions: Nitrofurantoin Macro 100 mg [Macrobid 100MG Capsule] 100 mg PO BID #10 cap
[2023-09-06 14:40] VITALS: TEMP 97.4; O2SAT 98
[2023-09-06 15:10] LABS: BASOPHIL % 0.4 % (0.0-0.4); Basophil (Absolute #) 0.03 x10^3/uL (0-0.4); Eosinophil % 1.6 % (0.00-5.0); Eosinophil (Absolute #) 0.14 x10^3/uL (0-0.5); Hemoglobin 11.7 g/dL (12.0-16.0); IMMATURE GRAN # 0.02 x10^3u/L (0.00-0.03); IMMATURE GRAN % 0.2 % (0.00-0.4); Lymphocyte (Absolute #) 2.27 x10^3/uL (1.0-4.6); Lymphocytes % 26.6 % (24.0-44.0); Mean Cell Volume 89.1 fL (78-100); Mean Corpuscular Hemoglobin 29.8 pg (26-32); Mean Corpuscular Hgb Concent. 33.4 g/dL (32-36); Mean Platelet Volume 8.6 fL (7.5-11.0); Monocyte (Absolute #) 0.56 x10^3/uL (0.0-1.3); Monocytes % 6.6 % (0.0-12.0); Neutrophil % 64.6 % (36.0-66.0); Platelet Count 305 x10^3/uL (150-450); Red Blood Count 3.93 x10^6/uL (4.1-5.4); Red Cell Distribution Width 12.4 % (11.5-14.0); White Blood Count 8.5 x10^3/uL (4.0-10.5)
[2023-09-06 15:30] LABS: Appearance Clear (Clear); Bacteria Rare /HPF (None Seen); Bilirubin Negative (Negative); Blood Negative (Negative); Glucose, Urine Negative (Negative); Hyaline Casts NONE SEEN /LPF (0-2); Ketones Negative (Negative); Leukocyte Esterase Moderate (Negative); Nitrite Negative (Negative); Protein,Urine Dip Negative (Negative)
[2023-09-06 15:31] LABS: ADD URINE CULTURE? NO (NO); Epithelial Cells Rare /HPF (None Seen); RBC NONE SEEN /HPF (0-5)
[2023-09-06 15:40] LABS: ALBUMIN 3.8 g/dL (3.5-5.0); ANION GAP 10.4 MEQ/L (5-15); BILIRUBIN,TOTAL 0.6 mg/dL (0.2-1.3); Calcium 8.7 mg/dL (8.4-10.2); Creatinine 1 0.48 mg/dL (0.52-1.04); EST GLOMERULAR FILTRATION RATE 129.8 ML/MIN; Potassium 3.2 mmol/L (3.5-5.1); Total Protein 6.6 g/dL (6.3-8.2)
[2023-09-06 16:15] VITALS: BP 107/75; PULSE 68
== END 2023-09-06 16:39 | disposition home or self-care (01) ==
LOC: ED 14:21
DX: O20.9 Hemorrhage in early pregnancy, unspecified (principal); O23.41 Unspecified infection of urinary tract in pregnancy, first trimester; N39.0 Urinary tract infection, site not specified; Z3A.09 9 weeks gestation of pregnancy
CPT/HCPCS: 36415; 80053; 81001; 84702; 85025; 99282

== ENCOUNTER 2023-11-05 13:22 | Emergency (ER) | payer OTHER ==
[2023-11-05 13:50] VITALS: RESP 18; TEMP 98.2; O2SAT 99
[2023-11-05 14:35] VITALS: BP 104/64
[2023-11-05 14:52] LABS: Absolute Neutrophil Ct (ANC) 8.46 x10^3/uL (1.56-6.13); BASOPHIL % 0.2 % (0.1-1.2); Basophil (Absolute #) 0.02 x10^3/uL (0.01-0.08); Eosinophil % 0.3 % (0.7-5.8); Eosinophil (Absolute #) 0.03 x10^3/uL (0.04-0.36); Hemoglobin 9.8 g/dL (11.2-15.7); IMMATURE GRAN # 0.06 x10^3u/L (0.001-0.031); IMMATURE GRAN % 0.6 % (0.001-0.429); Lymphocytes % 13.3 % (19.3-51.7); Mean Cell Volume 84.2 fL (79.4-94.8); Mean Corpuscular Hemoglobin 26.6 pg (25.6-32.2); Mean Corpuscular Hgb Concent. 31.6 g/dL (32.2-35.5); Mean Platelet Volume 8.4 fL (9.4-12.3); Monocyte (Absolute #) 0.55 x10^3/uL (0.24-0.86); Monocytes % 5.2 % (4.7-12.5); Neutrophil % 80.4 % (34.0-71.1); Platelet Count 334 x10^3/uL (182-369); Red Blood Count 3.68 x10^6/uL (3.93-5.22); White Blood Count 10.5 x10^3/uL (3.98-10.04)
--- NOTE | 2023-11-05 14:55 | ERPHSYRPT ---
- History of Present Illness Time Seen by Provider: 11/05/23 13:52 Source: patient Exam Limitations: no limitations Patient Subjective Stated Complaint: PT HERE FOR PAIN TO RIGHT LOWER QUAD AFTER FALLING DOWN 2 STEPS THIS MORNING AT HOME, SHE IS 16 WKS AND 6 DAYS , HAS VAGINAL SPOTTING DARK BLOOD Triage Nursing Assessment: PT ALERT, WALKED IN, RESP EASY, SKIN W/D/P. MOVES ALL EXT WELL, ABD SOFT, Physician History: Patient here after fall this morning. Patient states that she had a mechanical fall down 2 steps this morning. Patient states that she stepped down and twisted her ankle and tripped over her cat. Patient is 16 weeks . States that since that time she has had some right abdominal pain. No actual bony pain, hip pain, leg pain on the right. She did fall more on her left side. She does have some left ankle pain, left knee pain, left lower leg pain. Patient states that she has had some dark vaginal spotting throughout her whole . States it is not particularly worse today. Although she has noticed some minimal spotting today. Allergies/Adverse Reactions: Penicillins Adverse Reaction (Verified 01/31/22 21:55) Home Medications: Cholecalciferol (Vitamin D3) [Vitamin D3] 1 ea UD 05/18/21 [History] B-Complex with Vitamin C [Vitamin B-Complex & C] 1 ea DAILY 10/19/21 [History] Hx Tetanus, Diphtheria Vaccination/Date Given: Yes Hx Influenza Vaccination/Date Given: No Hx Pneumococcal Vaccination/Date Given: No Immunizations Up to Date: Yes Travel Risk - International Travel Have you traveled outside of the country in past 3 weeks: No - Emerging Infectious Disease Are you exhibiting symptoms associated with any current EIDs: No Symptoms: Abdominal Pain - Past Medical History Pertinent Past Medical History: Yes Neurological History: No Pertinent History ENT History: No Pertinent History Cardiac History: No Pertinent History Respiratory History: No Pertinent History Endocrine Medical History: No Pertinent History Musculoskeletal History: No Pertinent History GI Medical History: No Pertinent History History: No Pertinent History Psycho-Social History: Anxiety, Depression Female Reproductive Disorders: Other Other Medical History: PCOS,pstd , psot 05/09/20 - Past Surgical History Past Surgical History: Yes Neuro Surgical History: No Pertinent History Cardiac: No Pertinent History Respiratory: No Pertinent History Gastrointestinal: Cholecystectomy Genitourinary: No Pertinent History Musculoskeletal: No Pertinent History Female Surgical History: No Pertinent History Other Surgical History: Left Foot Surgery, gastric bypass - Female History Hx Last Menstrual Period: JULY 02 Hx Now: Yes Gestational Age: 17 - Social History Smoking Status: Former smoker Exposure to second hand smoke: No Drug Use: none Patient Lives Alone: No - Social Determinants of Health Will the patient participate in the screening: Yes Do you worry about a steady place to live?: No Do you have any problems with any of the following?: No known problems In the past 12 months,have you had to go without utilities?: No Transportation Issues: No Has anyone in your support network made you feel unsafe?: No Have you or anyone in your house had to go without enough: No - Nursing Vital Signs Nursing Vital Signs: Initial Vital Signs Temperature 98.2 F 11/05/23 13:49 Pulse Rate 80 11/05/23 13:49 Respiratory Rate 18 11/05/23 13:49 Blood Pressure 122/66 11/05/23 13:49 O2 Sat by Pulse Oximetry 99 11/05/23 13:49 Pain Scale Pain Intensity 8 - Physical Exam SpO2 Interpretation: normal SpO2: 99 Comments: 11/05/23 14:58 Review of Systems Constitutional: Negative for fever. HENT: Negative for congestion. Respiratory: Negative for shortness of breath. Cardiovascular: Negative for chest pain. Gastrointestinal: Abdominal pain Genitourinary: Negative for dysuria. Musculoskeletal: Negative for back pain. Skin: Negative for rash. Neurological: Negative for headaches. Psychiatric/Behavioral: Negative for behavioral problems. All other systems reviewed and are negative. Physical Exam Vitals signs and nursing note reviewed. Constitutional: Appearance: Patient is well-developed. HENT: Head: Normocephalic and atraumatic. Eyes: Conjunctiva/sclera: Conjunctivae normal. Neck: Musculoskeletal: Normal range of motion. Trachea: No tracheal deviation. Cardiovascular: Rate and Rhythm: Normal rate. Pulmonary: Effort: Pulmonary effort is normal. No respiratory distress. Abdominal: Palpations: Abdomen is soft. Right-sided abdominal pain. No bony tenderness. No rebound or guarding. No overlying skin changes. Abdomen exam consistent with 16-week uterus. Musculoskeletal: General: No deformity. Left ankle pain, left tib-fib tenderness throughout, left knee pain. No obvious deformity, sensation intact, 2+ capillary refill, 2 point tactile discrimination intact. 5 out of 5 strength. Full range of motion without pain. Compartments are soft, nontender. Overlying skin shows no tenting, bruising, ecchymosis. Skin: General: Skin is warm and dry. Neurological/ Psychiatric: Mental Status: Mental status, behavior, interaction with environment is appropriate for patient's age and condition - Course Nursing assessment & vital signs reviewed: Yes Ordered Tests: Active Orders 24 hr Category Date Time Status ANKLE (3 VIEWS) Stat Exams 11/05/23 14:03 Completed KNEE (3 VIEWS) Stat Exams 11/05/23 14:03 Completed LOWER LEG Stat Exams 11/05/23 14:05 Completed OB LIMITED [US] Stat Exams 11/05/23 14:02 Completed BMP Stat Lab 11/05/23 14:50 Completed CBC W DIFF Stat Lab 11/05/23 14:50 Completed Lab/Rad Data: Laboratory Result Diagrams 11/05/23 14:50 11/05/23 14:50 Laboratory Results 11/05/23 11/05/23 Range/Units 14:50 14:50 WBC 10.5 H (3.98-10.04) x10^3/uL RBC 3.68 L (3.93-5.22) x10^6/uL Hgb 9.8 L (11.2-15.7) g/dL Hct 31.0 L (34.1-44.9) % MCV 84.2 (79.4-94.8) fL MCH 26.6 (25.6-32.2) pg MCHC 31.6 L (32.2-35.5) g/dL RDW 13.0 (11.7-14.4) % Plt Count 334 (182-369) x10^3/uL MPV 8.4 L (9.4-12.3) fL Gran % 80.4 H (34.0-71.1) % Immature Gran % (Auto) 0.6 H (0.001-0.429) % Nucleat RBC Rel Count 0.0 (0.00-0.2) % Eos # (Auto) 0.03 L (0.04-0.36) x10^3/uL Immature Gran # (Auto) 0.06 H (0.001-0.031) x10^3u/L Absolute Lymphs (auto) 1.40 (1.18-3.74) x10^3/uL Absolute Monos (auto) 0.55 (0.24-0.86) x10^3/uL Absolute Nucleated RBC 0.00 (0.00-0.012) x10^3u/L Lymphocytes % 13.3 L (19.3-51.7) % Monocytes % 5.2 (4.7-12.5) % Eosinophils % 0.3 L (0.7-5.8) % Basophils % 0.2 (0.1-1.2) % Absolute Granulocytes 8.46 H (1.56-6.13) x10^3/uL Basophils # 0.02 (0.01-0.08) x10^3/uL Sodium 137 (135-145) mmol/L Potassium 3.8 (3.5-5.1) mmol/L Chloride 107 (98-107) mmol/L Carbon Dioxide 24 (22-30) mmol/L Anion Gap 9.9 (5-15) MEQ/L BUN 8 (7-17) mg/dL Creatinine 0.56 (0.52-1.04) mg/dL Estimated GFR 124.3 ML/MIN Glucose 80 (74-106) mg/dL Calcium 9.0 (8.4-10.2) mg/dL - Progress Progress: improved Progress Note: 11/05/23 14:59 Differential diagnosis includes placental abruption, miscarriage, subchorionic hemorrhage, other trauma in , left ankle fracture, other musculoskeletal injury Plan for x-ray of left ankle, tib-fib, left knee, ultrasound of the abdomen to evaluate , CBC/BMP 11/05/23 15:52 CBC does show a hemoglobin of 9.8. However, may be low due to . Patient does have follow-up with her [facility] tomorrow. I do recommend a repeat CBC at that point in time. Her follow-up with us at 2:45 PM. Ultrasound obtained, showed a heart rate of 159. No large placental abruption, obvious hemorrhage, other significant traumatic issue. Patient has not gone through more than 1 pad an hour here in the emergency department. She states the vaginal bleeding is minimal at this point in time. Overall, I do believe patient is stable for discharge home at this point in time. X-rays of the left ankle, tib-fib, left knee also returned negative. Counseled pt/family regarding: lab results, diagnosis, need for follow-up, rad results - Departure Departure Disposition: Home Clinical Impression: Trauma during , Anemia affecting Condition: Stable Critical Care Time: No Referrals: RAGHAVENDRA GRANT SEWING PATTERN LAYOUT TECHNICIAN [Primary Care Provider] - Follow up/PCP as directed Instructions: How to Adapt to Physical Changes During , Preventing falls in adults Additional Instructions: Keep your follow-up appointment tomorrow at 2:45 PM with your Y[facility] HANDLER. Your hemoglobin was 9.8 today. You will need this repeated tomorrow. Your does appear stable on ultrasound today. However, should you have any increasing pain, vomiting, increased or worsening bleeding you should immediately return to the closest ER for evaluation. Should anything else change, any new or changing symptoms return to the emergency department immediately.
[2023-11-05 15:06] LABS: ANION GAP 9.9 MEQ/L (5-15); Creatinine 1 0.56 mg/dL (0.52-1.04); EST GLOMERULAR FILTRATION RATE 124.3 ML/MIN; Potassium 3.8 mmol/L (3.5-5.1)
--- NOTE | 2023-11-05 15:06 | XRAY ---
Trauma following fall. Evaluate viability, the center, MATTHIAS, and cervical length. Limited OB ultrasound demonstrates single intrauterine with heart rate 159 bpm. Anterior placenta without abnormal retroplacental fluid. Four-quadrant MATTHIAS is 10.1 cm. Cervical length is 3.5 cm.
--- NOTE | 2023-11-05 15:18 | XRAY ---
Indication: Pain following fall. Comparison: None 3 portable views left knee demonstrates incidental small posterior fabella. No other bony, articular, or soft tissue abnormalities.
--- NOTE | 2023-11-05 15:18 | XRAY ---
Indication: Pain following fall. Comparison: None 3 portable views left ankle demonstrates normal bones, articulation, and soft tissues.
--- NOTE | 2023-11-05 15:18 | XRAY ---
Indication: Pain following fall. Comparison: None 2 portable views left lower leg demonstrates normal bones, articulation, and soft tissues.
[2023-11-05 15:52] VITALS: PULSE 78
== END 2023-11-05 15:52 | disposition home or self-care (01) ==
LOC: ED 13:22
DX: Z04.3 Encounter for examination and observation following other accident (principal); O99.012 Anemia complicating pregnancy, second trimester; Z3A.16 16 weeks gestation of pregnancy; M25.572 Pain in left ankle and joints of left foot; M79.662 Pain in left lower leg; M25.562 Pain in left knee; R10.9 Unspecified abdominal pain
CPT/HCPCS: 36415; 73562; 73590; 73610; 76815; 80048; 85025; 99283

== ENCOUNTER 2023-11-09 14:03 | Emergency (ER) | payer OTHER ==
--- NOTE | 2023-11-09 14:48 | ERPHSYRPT ---
- History of Present Illness Time Seen by Provider: 11/09/23 14:34 Historian: patient Exam Limitations: no limitations Patient Subjective Stated Complaint: 17 weeks , cramping and passing blot clots Triage Nursing Assessment: Patient reports to ER with complaints of abdominal cramping and passing blood clots. Patient reports she is 17 weeks and that she fell 4 days ago while walking up stairs and hit her lower abdomen on concrete stairs. Patient reports that she was seen in this ER on Friday after the fall and heart tones were assessed and an ultrasound was performed. Patient has a history of miscarrage - last one being in April of 2021. Patient describes abdominal cramping as intermittent and rates pain 4/10 at this time. Patient reports that during her last ER visit she was told she was anemic and to monitor her hemoglobin levels. Physician History: Pt states she started with lower mid abdominal cramps and passing blood clots this morning; denies chest pain, shortness of air, fever, cough, nausea, vomiting, diarrhea. Pt states she is 17 weeks . Allergies/Adverse Reactions: Penicillins Adverse Reaction (Verified 11/09/23 14:16) Home Medications: No Reportable Medications [No Reported Medications] 11/09/23 [History] Hx Tetanus, Diphtheria Vaccination/Date Given: Yes Hx Influenza Vaccination/Date Given: No Hx Pneumococcal Vaccination/Date Given: No Immunizations Up to Date: Yes Travel Risk - International Travel Have you traveled outside of the country in past 3 weeks: No - Emerging Infectious Disease Are you exhibiting symptoms associated with any current EIDs: No Symptoms: Abdominal Pain - Review of Systems Constitutional: No Fever Respiratory: No Cough, No Dyspnea Cardiac: No Chest Pain Abdominal/Gastrointestinal: Abdominal Pain, No Nausea, No Vomiting, No Diarrhea Genitourinary Symptoms: Neurological: No Headache - Past Medical History Pertinent Past Medical History: Yes Neurological History: No Pertinent History ENT History: No Pertinent History Cardiac History: No Pertinent History Respiratory History: No Pertinent History Endocrine Medical History: Diabetes Type II Musculoskeletal History: No Pertinent History GI Medical History: No Pertinent History History: No Pertinent History Psycho-Social History: Anxiety, Depression Female Reproductive Disorders: Other Other Medical History: PCOS,ptstd , post 05/09/20 - Past Surgical History Past Surgical History: Yes Neuro Surgical History: No Pertinent History Cardiac: No Pertinent History Respiratory: No Pertinent History Gastrointestinal: Cholecystectomy Genitourinary: No Pertinent History Musculoskeletal: No Pertinent History Female Surgical History: No Pertinent History Other Surgical History: Left Foot Surgery, gastric bypass, skin removal - Female History Hx Last Menstrual Period: JULY 02 Hx Now: Yes Gestational Age: 17 weeks - Social History Smoking Status: Former smoker Exposure to second hand smoke: No Drug Use: none Patient Lives Alone: No - Social Determinants of Health Will the patient participate in the screening: Yes Do you worry about a steady place to live?: No Do you have any problems with any of the following?: No known problems In the past 12 months,have you had to go without utilities?: No Transportation Issues: No Has anyone in your support network made you feel unsafe?: No Have you or anyone in your house had to go without enough: No - Nursing Vital Signs Nursing Vital Signs: Initial Vital Signs Pulse Rate 86 11/09/23 14:21 Respiratory Rate 19 11/09/23 14:21 Blood Pressure 128/69 11/09/23 14:21 O2 Sat by Pulse Oximetry 98 11/09/23 14:21 Pain Scale Pain Intensity 4 - Physical Exam General Appearance: alert Eye Exam: PERRL/EOMI Ears, Nose, Throat Exam: TMs normal, pharynx normal Neck Exam: normal inspection Respiratory Exam: normal breath sounds, airway intact Cardiovascular Exam: normal heart sounds Gastrointestinal/Abdomen Exam: normal bowel sounds, other (uterine fundal height is 2 cm below umbilicus) Back Exam: normal inspection Extremity Exam: No pedal edema Neurologic Exam: alert, cooperative Skin Exam: warm, dry SpO2 Interpretation: normal SpO2: 98 O2 Delivery: Room Air - Course Nursing assessment & vital signs reviewed: Yes - Radiology Ultrasound Exam OB Ultrasound: Other (tech report: normal OB ultrasound, heart rate = 151.) Ordered Tests: Active Orders 24 hr Category Date Time Status OB >14 WKS 1st GESTATION [US] Stat Exams 11/09/23 14:50 Ordered AMYLASE Stat Lab 11/09/23 14:52 Completed CBC W DIFF Stat Lab 11/09/23 14:52 Completed CMP Stat Lab 11/09/23 14:52 Completed LIPASE Stat Lab 11/09/23 14:52 Completed UA W/RFX UR CULTURE Stat Lab 11/09/23 14:52 Completed Medication Summary Discontinued Medications Generic Name Dose Route Start Last Admin Trade Name Freq PRN Reason Stop Dose Admin Acetaminophen 650 mg 11/09/23 16:40 Acetaminophen 325 Mg Tablet PO 11/09/23 16:41 STAT ONE Lab/Rad Data: Laboratory Result Diagrams 11/09/23 14:52 11/09/23 14:52 Laboratory Results 11/09/23 11/09/23 11/09/23 Range/Units 14:52 14:52 14:52 WBC 7.9 (3.98-10.04) x10^3/uL RBC 3.58 L (3.93-5.22) x10^6/uL Hgb 9.4 L (11.2-15.7) g/dL Hct 30.4 L (34.1-44.9) % MCV 84.9 (79.4-94.8) fL MCH 26.3 (25.6-32.2) pg MCHC 30.9 L (32.2-35.5) g/dL RDW 13.1 (11.7-14.4) % Plt Count 330 (182-369) x10^3/uL MPV 8.5 L (9.4-12.3) fL Gran % 72.5 H (34.0-71.1) % Immature Gran % (Auto) 0.5 H (0.001-0.429) % Nucleat RBC Rel Count 0.0 (0.00-0.2) % Eos # (Auto) 0.06 (0.04-0.36) x10^3/uL Immature Gran # (Auto) 0.04 H (0.001-0.031) x10^3u/L Absolute Lymphs (auto) 1.52 (1.18-3.74) x10^3/uL Absolute Monos (auto) 0.52 (0.24-0.86) x10^3/uL Absolute Nucleated RBC 0.00 (0.00-0.012) x10^3u/L Lymphocytes % 19.3 (19.3-51.7) % Monocytes % 6.6 (4.7-12.5) % Eosinophils % 0.8 (0.7-5.8) % Basophils % 0.3 (0.1-1.2) % Absolute Granulocytes 5.73 (1.56-6.13) x10^3/uL Basophils # 0.02 (0.01-0.08) x10^3/uL Sodium 138 (135-145) mmol/L Potassium 4.1 (3.5-5.1) mmol/L Chloride 110 H (98-107) mmol/L Carbon Dioxide 22 (22-30) mmol/L Anion Gap 10.9 (5-15) MEQ/L BUN 7 (7-17) mg/dL Creatinine 0.53 (0.52-1.04) mg/dL Estimated GFR 125.9 ML/MIN Glucose 65 L (74-106) mg/dL Calcium 8.6 (8.4-10.2) mg/dL Total Bilirubin 0.50 (0.2-1.3) mg/dL AST 21 (14-36) U/L ALT 20 (0-35) U/L Alkaline Phosphatase 59 (38-126) U/L Serum Total Protein 6.1 L (6.3-8.2) g/dL Albumin 3.3 L (3.5-5.0) g/dL Amylase 79 (30-110) U/L Lipase 100 (23-300) U/L Urine Color Yellow (Yellow) Urine Appearance Clear (Clear) Urine pH 5.0 (4.6-8.0) Ur Specific [place] 1.020 (1.005-1.030) Urine Protein Negative (Negative) Urine Glucose (UA) Negative (Negative) mg/dL Urine Ketones Negative (Negative) Urine Blood Negative (Negative) Urine Nitrite Negative (Negative) Urine Bilirubin Negative (Negative) Urine Urobilinogen 0.2 (0.2) mg/dL Ur Leukocyte Esterase Negative (Negative) U Hyaline Cast (Auto) NONE SEEN (0-2) /LPF Urine Microscopic RBC 3-5 (0-5) /HPF Urine Microscopic WBC 0-2 (0-5) /HPF Ur Epithelial Cells Few (None Seen) /HPF Triple Phos Crystals 6-10 A (None Seen) /HPF Urine Bacteria Few A (None Seen) /HPF Urine Culture Reflexed NO (NO) - Progress Progress: unchanged Counseled pt/family regarding: lab results, diagnosis, need for follow-up Medical Desision Making - Diagnostic Testing Diagnostic test were ordered, analyzed, and reviewed by me: Yes - Departure Departure Disposition: Home Clinical Impression: , Vaginal bleeding, Anemia Condition: Stable Critical Care Time: No Referrals: RAGHAVENDRA GRANT NP [Primary Care Provider] - Follow up/PCP as directed Instructions: Threatened Miscarriage (DC) Additional Instructions: Follow up with private doctor tomorrow. Follow up with OB doctor tomorrow. Strict bed rest until your OB doctor is seen. Forms: Work/School Release Form
[2023-11-09 15:07] VITALS: PULSE 69; RESP 18
[2023-11-09 15:09] LABS: Absolute Neutrophil Ct (ANC) 5.73 x10^3/uL (1.56-6.13); BASOPHIL % 0.3 % (0.1-1.2); Basophil (Absolute #) 0.02 x10^3/uL (0.01-0.08); Eosinophil % 0.8 % (0.7-5.8); Eosinophil (Absolute #) 0.06 x10^3/uL (0.04-0.36); Hematocrit 30.4 % (34.1-44.9); Hemoglobin 9.4 g/dL (11.2-15.7); IMMATURE GRAN # 0.04 x10^3u/L (0.001-0.031); IMMATURE GRAN % 0.5 % (0.001-0.429); Lymphocyte (Absolute #) 1.52 x10^3/uL (1.18-3.74); Lymphocytes % 19.3 % (19.3-51.7); Mean Cell Volume 84.9 fL (79.4-94.8); Mean Corpuscular Hemoglobin 26.3 pg (25.6-32.2); Mean Corpuscular Hgb Concent. 30.9 g/dL (32.2-35.5); Mean Platelet Volume 8.5 fL (9.4-12.3); Monocyte (Absolute #) 0.52 x10^3/uL (0.24-0.86); Monocytes % 6.6 % (4.7-12.5); Neutrophil % 72.5 % (34.0-71.1); Platelet Count 330 x10^3/uL (182-369); Red Blood Count 3.58 x10^6/uL (3.93-5.22); Red Cell Distribution Width 13.1 % (11.7-14.4); White Blood Count 7.9 x10^3/uL (3.98-10.04)
[2023-11-09 15:23] LABS: ALBUMIN 3.3 g/dL (3.5-5.0); ANION GAP 10.9 MEQ/L (5-15); BILIRUBIN,TOTAL 0.5 mg/dL (0.2-1.3); Calcium 8.6 mg/dL (8.4-10.2); Creatinine 1 0.53 mg/dL (0.52-1.04); EST GLOMERULAR FILTRATION RATE 125.9 ML/MIN; Potassium 4.1 mmol/L (3.5-5.1); Total Protein 6.1 g/dL (6.3-8.2)
[2023-11-09 15:30] LABS: Appearance Clear (Clear); Bilirubin Negative (Negative); Blood Negative (Negative); Glucose, Urine Negative (Negative); Hyaline Casts NONE SEEN /LPF (0-2); Ketones Negative (Negative); Leukocyte Esterase Negative (Negative); Nitrite Negative (Negative); Protein,Urine Dip Negative (Negative); Urobilinogen 0.2 mg/dL (0.2); WBC 0-2 /HPF (0-5)
[2023-11-09 15:31] LABS: ADD URINE CULTURE? NO (NO); Bacteria Few /HPF (None Seen); Epithelial Cells Few /HPF (None Seen)
[2023-11-09 16:42] VITALS: BP 102/67
[2023-11-09 16:52] VITALS: O2SAT 98
[2023-11-09] MEDS: TYLENOL 325 MG PO ONE (16:55)
[2023-11-09] MEDS ORDERED: TYLENOL 325 MG ONE (17:03)
--- NOTE | 2023-11-09 18:47 | XRAY ---
Indication: Pain. Bleeding. Limited OB ultrasound performed. Comparison: September 08, 2023 Again single intrauterine with heart rate 151 bpm. Anterior placenta without abnormal retroplacental fluid. Four-quadrant MATTHIAS is 12.5 cm. Cervical length is 3.3 cm. Comment: Preliminary report was given.
== END 2023-11-09 17:13 | disposition home or self-care (01) ==
LOC: ED 14:03
DX: O20.9 Hemorrhage in early pregnancy, unspecified (principal); O99.012 Anemia complicating pregnancy, second trimester; D64.9 Anemia, unspecified; Z3A.17 17 weeks gestation of pregnancy
CPT/HCPCS: 36415; 76805; 80053; 81001; 82150; 83690; 85025; 99283; A9270-GY

== ENCOUNTER 2023-12-21 05:22 | Observation (INO) | payer OTHER ==
[2023-12-21 06:11] VITALS: RESP 18; O2SAT 99
[2023-12-21 06:13] LABS: Appearance Clear (Clear); Bacteria None Seen /HPF (None Seen); Bilirubin Negative (Negative); Blood Negative (Negative); Epithelial Cells Rare /HPF (None Seen); Glucose, Urine Negative (Negative); Hyaline Casts NONE SEEN /LPF (0-2); Ketones Negative (Negative); Leukocyte Esterase Trace (Negative); Nitrite Negative (Negative); Protein,Urine Dip Trace (Negative); RBC 0-2 /HPF (0-5); Specific Gravity >=1.030 (1.005-1.030)
[2023-12-21 06:17] LABS: ADD URINE CULTURE? NO (NO)
[2023-12-21 06:18] LABS: Amphetamine,Urine NEGATIVE (NEGATIVE); Barbiturate,Urine NEGATIVE (NEGATIVE); Benzodiazepine,Urine NEGATIVE (NEGATIVE); Cocaine,Urine NEGATIVE (NEGATIVE); Methadone,Urine NEGATIVE (NEGATIVE); Opiate,Urine NEGATIVE (NEGATIVE); PCP,Urine NEGATIVE (NEGATIVE); THC,Urine NEGATIVE (NEGATIVE)
[2023-12-21 07:17] LABS: Absolute Neutrophil Ct (ANC) 16.32 x10^3/uL (1.56-6.13); BASOPHIL % 0.2 % (0.1-1.2); Basophil (Absolute #) 0.03 x10^3/uL (0.01-0.08); Eosinophil % 0.1 % (0.7-5.8); Eosinophil (Absolute #) 0.01 x10^3/uL (0.04-0.36); Hematocrit 31.9 % (34.1-44.9); Hemoglobin 9.8 g/dL (11.2-15.7); IMMATURE GRAN % 0.5 % (0.001-0.429); Lymphocyte (Absolute #) 0.78 x10^3/uL (1.18-3.74); Lymphocytes % 4.3 % (19.3-51.7); Mean Cell Volume 82.2 fL (79.4-94.8); Mean Corpuscular Hemoglobin 25.3 pg (25.6-32.2); Mean Corpuscular Hgb Concent. 30.7 g/dL (32.2-35.5); Mean Platelet Volume 8.4 fL (9.4-12.3); Monocyte (Absolute #) 1.01 x10^3/uL (0.24-0.86); Monocytes % 5.5 % (4.7-12.5); Neutrophil % 89.4 % (34.0-71.1); Platelet Count 343 x10^3/uL (182-369); Red Blood Count 3.88 x10^6/uL (3.93-5.22); Red Cell Distribution Width 15.3 % (11.7-14.4); White Blood Count 18.3 x10^3/uL (3.98-10.04)
[2023-12-21 08:55] LABS: ALBUMIN 3.6 g/dL (3.5-5.0); ANION GAP 13.6 MEQ/L (5-15); BILIRUBIN,TOTAL 0.5 mg/dL (0.2-1.3); Calcium 8.7 mg/dL (8.4-10.2); Creatinine 1 0.47 mg/dL (0.52-1.04); EST GLOMERULAR FILTRATION RATE 129.6 ML/MIN; Potassium 3.6 mmol/L (3.5-5.1); Total Protein 6.8 g/dL (6.3-8.2)
[2023-12-21] MEDS: Lactated Ringers 1,000 ML IV SCH (09:16)
--- NOTE | 2023-12-21 11:04 | XRAY ---
CLINICAL HISTORY: ABD PAIN COMPARISON: No prior studies are available for comparison. TECHNIQUE: Non-contrast CT of the abdomen and pelvis was performed, with the following protocol: axial images, and reconstructed coronal and sagittal images. No intravenous contrast was administered. One of the following dose reduction techniques was utilized for this exam: Automated exposure control, adjustment of the mA and/or kV according to patient size, and use of iterative reconstruction. CTDI: 9.46 mGy, DLP: 522.01 mGy-cm. FINDINGS: Abdomen: Stomach: Surgical clips were noted at the stomach, with gastrojejunostomy, clear operative bed with no fluid or collections. Liver: Normal in size, shape, and density. No focal lesions, cysts, or masses were identified. Gallbladder and Biliary System: Surgically removed. Pancreas: Pancreatic head, body, and tail are visualized and appear normal in size and density. No pancreatic masses or calcifications were noted. Spleen: Normal in size, shape, and density. No splenic lesions or masses were identified. Kidneys and Adrenal Glands: Both kidneys are normal in size, shape, and position. Cortical thickness is within normal limits. No renal calculi or hydronephrosis. Adrenal glands are unremarkable. Appendix: The dilated sub-hepatic appendix measures 10 mm, with a thickened wall and abhijeet-appendicular fat stranding, Pelvis: Urinary Bladder: Normal in contour and wall thickness. No intraluminal lesions. Uterus: Gravid uterus with a single intrauterine fetus inside. anterior located placenta. Ovaries: Not well visualized but no gross abnormalities noted. Peritoneal and Retroperitoneal Structures: No free fluid or abnormal fluid collections were identified within the abdomen or pelvis. No lymphadenopathy was noted. Bowel: The visualized bowel loops are normal in caliber and appearance. No evidence of bowel obstruction or wall thickening. Bones and Soft Tissues: Mild lower lumbar degenerative changes. IMPRESSION: 1. Dilated sub-hepatic appendix measures 10 mm, with a thickened wall and abhijeet-appendicular fat stranding. The possibility of early appendicitis is suggested and clinical correlation is needed, 2. Gravid uterus with single intrauterine fetus, Ultrasound is needed for correlation. [facility] ER was called at [phone] at 9:55 AM [employer], 12/21/2023 and Sujey Lawrence Nurse was informed regarding the presence of Critical Medical Findings in the report. Electronically Signed by: Sonny Winston MD. (12/21/2023 11:01:07 EDT)
[2023-12-21] MEDS: Merrem 1 GM in Sodium Chloride 100ML MINI-BAG PLUS 100 ML IV ONE (11:26)
[2023-12-21] MEDS: MORPHINE SULFATE 2 MG INJ IV ONE (11:44)
[2023-12-21 13:01] VITALS: BP 102/61; PULSE 68; TEMP 97.7
--- NOTE | 2023-12-21 18:45 | XRAY ---
Indication: Abdominal pain. Evaluate heart rate, placenta, cervix, and MATTHIAS. Limited OB ultrasound demonstrates single intrauterine in cephalic presentation. heart rate 149 BPM. Anterior placenta without abnormal retroplacental fluid. Closed cervix with cervical length 3.7 cm. Comment: Preliminary report was given.
--- NOTE | 2023-12-21 18:47 | XRAY ---
Indication: Right lower quadrant pain. Targeted ultrasound right lower quadrant negative for focal solid/cystic mass or abnormal fluid collection. Appendix not visualized. Comment: Preliminary report was given.
== END 2023-12-21 12:59 | disposition home or self-care (01) ==
LOC: OB 05:22
PROVIDERS: ADMIT Obstetrics & Gynecology; ATTEND Obstetrics & Gynecology
DX: Z34.82 Encounter for supervision of other normal pregnancy, second trimester (principal); Z3A.23 23 weeks gestation of pregnancy
CPT/HCPCS: 36415; 74176; 76705; 76815; 80053; 80307; 81001; 85025; G0378; G0379; J2270

== ENCOUNTER 2024-04-12 16:50 | Emergency (ER) | payer OTHER | END 2024-04-12 17:32 | disposition left against medical advice (07) | LOC: ED 16:50 | DX: Z53.21 Procedure and treatment not carried out due to patient leaving prior to being seen by health care provider (principal) ==

== ENCOUNTER 2024-04-13 12:54 | Emergency (ER) | payer OTHER ==
[2024-04-13 13:23] VITALS: BP 130/82; PULSE 66; RESP 18; TEMP 97.9; O2SAT 96
--- NOTE | 2024-04-13 13:24 | ERPHSYRPT ---
- History of Present Illness Time Seen by Provider: 04/13/24 13:24 Source: patient Exam Limitations: no limitations Patient Subjective Stated Complaint: wound check Triage Nursing Assessment: Patient ambulated back to ED and transferred self to bed. Patient A+O X 3. Patient's skin pink, warm and dry. patient had C section on 04-08-24 and for the past couple of days she has had a rash around steri strips. Patient has 11 steri strips over incision. Patient denies pain or discomfort. Physician History: 33-year-old female postop day 5 presents to our ED for evaluation of a localized rash at the incision site. There are 11 Steri-Strips intact. The rash is at the immediate area of the Steri-Strip. Otherwise no complication. No superimposed cellulitis no fever no drainage no swelling no tenderness. No o bvious heat generation at this area. The redness is within the value of a skin fold. Patient otherwise feels well. She voices no other complaints or concerns at this time. Timing/Duration: day(s) Severity: moderate (3 to 4 days) Modifying Factors: Improves With: nothing Associated Symptoms: denies symptoms Allergies/Adverse Reactions: adhesive Allergy (Verified 04/13/24 13:24) Penicillins Adverse Reaction (Verified 04/13/24 13:09) Home Medications: No Reportable Medications [No Reported Medications] 04/13/24 [History] Hx Tetanus, Diphtheria Vaccination/Date Given: Yes Hx Influenza Vaccination/Date Given: No Hx Pneumococcal Vaccination/Date Given: No Travel Risk - International Travel Have you traveled outside of the country in past 3 weeks: No - Emerging Infectious Disease Are you exhibiting symptoms associated with any current EIDs: No Symptoms: Abdominal Pain - Review of Systems Constitutional: No Symptoms, No Fever, No Chills Eyes: No Symptoms Ears, Nose, & Throat: No Symptoms Respiratory: No Symptoms, No Cough, No Dyspnea Cardiac: No Symptoms, No Chest Pain, No Edema, No Syncope Abdominal/Gastrointestinal: No Symptoms, No Abdominal Pain, No Nausea, No Vomiting, No Diarrhea Genitourinary Symptoms: No Symptoms, No Dysuria Musculoskeletal: No Symptoms, No Back Pain, No Neck Pain Skin: No Symptoms, No Rash Neurological: No Symptoms, No Dizziness, No Focal Weakness, No Sensory Changes Psychological: No Symptoms Endocrine: No Symptoms Hematologic/Lymphatic: No Symptoms Immunological/Allergic: No Symptoms All Other Systems: Reviewed and Negative - Past Medical History Pertinent Past Medical History: Yes Neurological History: No Pertinent History ENT History: No Pertinent History Cardiac History: No Pertinent History Respiratory History: No Pertinent History Endocrine Medical History: Diabetes Type II Musculoskeletal History: No Pertinent History GI Medical History: No Pertinent History History: No Pertinent History Psycho-Social History: Anxiety, Depression Female Reproductive Disorders: Other Other Medical History: PCOS,ptstd , post 05/09/20 - Past Surgical History Past Surgical History: Yes Neuro Surgical History: No Pertinent History Cardiac: No Pertinent History Respiratory: No Pertinent History Gastrointestinal: Cholecystectomy Genitourinary: No Pertinent History Musculoskeletal: No Pertinent History Female Surgical History: No Pertinent History Other Surgical History: Left Foot Surgery, gastric bypass, skin removal - Female History Hx Last Menstrual Period: just had baby Hx Now: No - Social History Smoking Status: Former smoker Exposure to second hand smoke: No Drug Use: none Patient Lives Alone: No - Social Determinants of Health Will the patient participate in the screening: Yes Do you worry about a steady place to live?: No Do you have any problems with any of the following?: No known problems In the past 12 months,have you had to go without utilities?: No Transportation Issues: No Has anyone in your support network made you feel unsafe?: No Have you or anyone in your house had to go without enough: No - Nursing Vital Signs Nursing Vital Signs: Initial Vital Signs Temperature 97.9 F 04/13/24 13:11 Pulse Rate 66 04/13/24 13:11 Respiratory Rate 18 04/13/24 13:11 Blood Pressure 130/82 04/13/24 13:11 O2 Sat by Pulse Oximetry 96 04/13/24 13:11 Pain Scale Pain Intensity 0 - Physical Exam General Appearance: no apparent distress, alert Eye Exam: PERRL/EOMI, eyes nml inspection Ears, Nose, Throat Exam: normal ENT inspection, moist mucous membranes Neck Exam: normal inspection, full range of motion Respiratory Exam: normal breath sounds, lungs clear, airway intact, No respiratory distress Cardiovascular Exam: regular rate/rhythm, normal heart sounds, normal peripheral pulses Gastrointestinal/Abdomen Exam: soft, No tenderness, No mass Back Exam: normal inspection, normal range of motion, No CVA tenderness, No vertebral tenderness Extremity Exam: normal inspection, normal range of motion, pelvis stable Neurologic Exam: alert, oriented x 3, cooperative, normal mood/affect, sensation nml, No motor deficits Skin Exam: normal color, warm, dry, other (The area immediate to the incision site that is covered with Steri-Strip is red and erythematous. Findings consistent with a localized contact dermatitis likely secondary to the Steri-Strip adhesive. No open or draining lesions. No signs of infection), No rash Lymphatic Exam: No adenopathy SpO2 Interpretation: normal SpO2: 96 O2 Delivery: Room Air - Course Nursing assessment & vital signs reviewed: Yes - Progress Progress: improved Progress Note: 33-year-old female approximately 5 days postop with a contact dermatitis at the area of skin surrounding the incision site likely secondary to the intact Steri-Strips. 11 Steri-Strips removed by RN. Patient advised to keep the area dry and clean. If symptoms do not improve patient may try [id number] hydrocortisone. Patient to follow-up with her primary care doctor within 48 hours for evaluation. She voices no other complaints or concerns at this time. Portions of this note were created with voice recognition technology. There may be grammatical, spelling, punctuation or sound alike errors Complexity of problem addressed is moderate acute complicated no critical care time. Complex of data reviewed analyzes none. No specialized testing ordered. Diagnosis made based on history and physical exam. Risk of complication and or risk of morbidity/mortality of patient management is low. Vital stable. Time spent to discharge patient is approximately 10 minutes. Plan of care established for shared decision making. No social determinants of health present to impede follow-up. Portions of this note were created with voice recognition technology. There may be grammatical, spelling, punctuation or sound alike errors 04/13/24 13:36 Counseled pt/family regarding: diagnosis, need for follow-up - Departure Departure Disposition: Home Clinical Impression: Contact dermatitis Condition: Stable Critical Care Time: No Referrals: OLIVE CASAS DO [Primary Care Provider] - Follow up/PCP as directed Instructions: Contact dermatitis Additional Instructions: Discharge/Care Plan KIRBY GUERRERO was seen on 04/13/24 in the Emergency Room. The patient was counseled regarding Diagnosis,Lab results, Imaging studies, need for follow up and when to return to the Emergency Room. Prescriptions given: Discharge Note I have spoken with the patient and/or caregivers. I have explained the patient's condition, diagnosis and treatment plan based on the information available to me at this time. I have answered the patient's and/or caregiver's questions and addressed any concerns. The patient and/or caregivers have as good understanding of the patient's diagnosis, condition and treatment plan as can be expected at this point. The vital signs have been stable. The patient's condition is stable and appropriate for discharge from the emergency department. The patient will pursue further outpatient evaluation with the primary care physician or other designated or consulting physician as outlined in the discharge instructions. The patient and/or caregivers are agreeable to this plan of care and follow-up instructions have been explained in detail. The patient and/or caregivers have received these instruction. The patient/and or caregivers are aware that any significant change in condition or worsening of symptoms should prompt an immediate return to this or the closest emergency department or call 911.
== END 2024-04-13 13:31 | disposition home or self-care (01) ==
LOC: ED 12:54
DX: L25.9 Unspecified contact dermatitis, unspecified cause (principal); Z98.890 Other specified postprocedural states
CPT/HCPCS: 99281